=== PATIENT | male | born 1970 | race Caucasian/White ===

== ENCOUNTER 2017-01-15 03:09 | Emergency (ER) | payer BC, OTHER ==
[~2017-01-15] VITALS: Ht 175.3 cm; Wt 82.7 kg
[2017-01-15 03:14] VITALS: TEMP 36.6; Ht 175.3 cm; Wt 82.7 kg
--- NOTE | 2017-01-15 03:44 | EMERGENCY ROOM VISIT NOTE ---
History Report prepared by Brandy: Georgi Zamarripa Under the Supervision of: Dr. Tammie Calvert D.O. First contact with patient: 03:23 Chief Complaint: OTHER COMPLAINT Stated Complaint: EXTREME LICE INFESTATION History of Present Illness The patient is a 46 year old male who presents to the Emergency Room with complaints of a persistent lice infestation beginning three days ago. He states that his head has been itching a lot. He states that he has been using anti- lice shampoo. The patient states that he appeared to be clear of lice earlier today, but then noticed that there was more lice in his hair. He states that he was in the process of cleaning his apartment of lice today. The patient notes that he recently had a problem with bed bugs which was resolved relatively recently. Source of History: patient Onset: Three days ago Quality: other (lice infestation) Timing: other (persistent) Note: Additional symptoms: head itching. Review of Systems See HPI for pertinent positives & negatives. A total of 6 systems reviewed and were otherwise negative. Past Medical & Surgical Medical Problems: (1) No Known Active Medical Problems Family History No pertinent family history stated. Social History Smoking Status: Current Every Day Smoker Current/Historical Medications No Active Prescriptions or Reported Meds Allergies Coded Allergies: No Known Allergies (Unverified , 01/15/17) Physical Exam Vital Signs Date Time Temp Pulse Resp B/P (MAP) Pulse Ox O2 Delivery O2 Flow Rate FiO2 01/15/17 03:54 89 20 152/98 99 01/15/17 03:14 36.6 100 24 150/94 99 Room Air Physical Exam GENERAL: alert, well appearing, well nourished, no distress, non-toxic HEAD: Scalp unremarkable. EYE EXAM: normal conjunctiva, PERRL and EOM's grossly intact NECK: supple, no nuchal rigidity, no adenopathy, non-tender LUNGS: Normal chest wall mechanics. No obvious respiratory distress. SKIN: no rashes and no bruising UPPER EXTREMITIES: upper extremities are grossly normal. LOWER EXTREMITIES: No pitting edema. NEURO EXAM: Normal sensorium, cranial nerves II-XII grossly intact, normal speech, no gross weakness of arms, no gross weakness of legs. Medical Decision & Procedures ED Course 0324: The patient was evaluated in room A8. A complete history and physical exam was performed. 0350: Upon reevaluation, the patient is feeling better. I discussed the findings and the treatment plan with the patient. He verbalizes agreement and understanding. The patient was discharged home. Medical Decision No evidence of active lice infestation during bedside examination of the scalp. Patient very anxious regarding recent issues with bedbugs in his mattress, and now the recent she was lice. No evidence for cellulitis, abscess, no evidence of scabies, no evidence of any other skin rash or sores. Impression Primary Impression: Lice infestation Scribe Attestation The scribe's documentation has been prepared under my direction and personally reviewed by me in its entirety. I confirm that the note above accurately reflects all work, treatment, procedures, and medical decision making performed by me. Departure Information Dispostion Home / Self-Care Prescriptions No Active Prescriptions or Reported Meds Referrals No Doctor, Assigned (PCP) Patient Instructions My [facility] Additional Instructions Please continue tea tree oil and other treatments you have done at home. Please wash all of your blankets, pelvis, linens in hot water and dry on high heat. If you have any worsening symptoms or new concerns, please return to the emergency room.
[2017-01-15 03:54] VITALS: BP 152/98; PULSE 89; O2SAT 99
[2017-03-08] MEDS ORDERED: HYDR-5688 PO (11:19)
[2017-03-08] MEDS ORDERED: POTASSIUM PO (11:21)
== END 2017-01-15 03:55 | disposition home or self-care (01) ==
LOC: C.EDB 03:10 → C.EDA 03:55
DX: B85.0 Pediculosis due to Pediculus humanus capitis (principal); F17.210 Nicotine dependence, cigarettes, uncomplicated

== ENCOUNTER 2017-02-23 12:21 | Emergency (ER) | payer SELFPAY ==
[~2017-02-23] VITALS: Ht 175.3 cm; Wt 76.0 kg
[2017-02-23 12:23] VITALS: TEMP 36.4; Ht 175.3 cm; Wt 76.0 kg
[2017-02-23] MEDS ORDERED: MoRPHine SULFATE 10 MG/ML CARP/VIAL IM STA (12:38)
[2017-02-23] MEDS ORDERED: HYDROmorphone INJ 0.5 MG/0.5 ML SYR IV STA ×2 (13:36→15:53)
[2017-02-23] MEDS ORDERED: SODIUM CHLORIDE 0.9% 1000ML 1,000 ML IV STA (13:36)
--- NOTE | 2017-02-23 13:40 | DIAGNOSTIC IMAGING REPORT ---
RIGHT HEEL MIN 2 VIEWS CLINICAL HISTORY: fall, foot pain Right trauma. Pain. COMPARISON: None. DISCUSSION: Comminuted fracture of the mid anterior calcaneus. Fracture extends to the subtalar joint. Mild pars planus configuration. There is no evidence for soft tissue swelling. IMPRESSION: Comminuted fracture of the calcaneus The above report was generated using voice recognition software. It may contain grammatical, syntax or spelling errors. Electronically signed by: Ivan Licona M.D. 02/23/2017 1:39 PM Dictated Date/Time: 02/23/2017 1:38 PM
--- NOTE | 2017-02-23 13:41 | DIAGNOSTIC IMAGING REPORT ---
LEFT HEEL MIN 2 VIEWS CLINICAL HISTORY: Left calcaneal pain status post trauma COMPARISON: None. DISCUSSION: There is a comminuted intra-articular calcaneal fracture. IMPRESSION: Mildly comminuted intra-articular calcaneal fracture. Electronically signed by: Yomi Schaefer M.D. 02/23/2017 1:39 PM Dictated Date/Time: 02/23/2017 1:38 PM
--- NOTE | 2017-02-23 13:42 | DIAGNOSTIC IMAGING REPORT ---
LEFT FOOT MIN 3 VIEWS ROUTINE CLINICAL HISTORY: Left foot pain status post trauma COMPARISON: None. DISCUSSION: There is a comminuted intra-articular calcaneal fracture. There is a nondisplaced fracture involving the medial aspect of the navicular. No additional fractures are visualized. No subluxations are evident. IMPRESSION: 1. Comminuted intra-articular calcaneal fracture 2. Nondisplaced fracture involving the medial aspect of the navicular Electronically signed by: Yomi Schaefer M.D. 02/23/2017 1:41 PM Dictated Date/Time: 02/23/2017 1:39 PM
--- NOTE | 2017-02-23 13:44 | DIAGNOSTIC IMAGING REPORT ---
LEFT TIBIA/FIBULA 2 VIEWS ROUTINE CLINICAL HISTORY: Fall 6 feet onto feet, bilateral ankle and foot pain. Edema. Trauma COMPARISON: None. DISCUSSION: The bones and joint spaces appear intact. There is no evidence of fracture, dislocation or bony disease. Soft tissue edema is present. IMPRESSION: No acute bony abnormality. Soft tissue edematous change. The above report was generated using voice recognition software. It may contain grammatical, syntax or spelling errors. Electronically signed by: Ivan Licona M.D. 02/23/2017 1:42 PM Dictated Date/Time: 02/23/2017 1:42 PM
--- NOTE | 2017-02-23 13:45 | DIAGNOSTIC IMAGING REPORT ---
RIGHT TIBIA/FIBULA 2 VIEWS ROUTINE CLINICAL HISTORY: Fall 6 feet onto feet, bilateral ankle and foot pain. Edema. COMPARISON: None FINDINGS: There is no acute fracture of the right tibia or fibula. The comminuted, displaced right calcaneal fracture is better depicted on the right foot and heel radiographs. IMPRESSION: 1. No acute fracture of the right tibia or fibula. 2. Comminuted, displaced right calcaneal fracture which is better depicted on the right foot and heel radiographs. Electronically signed by: Aditya Adkins M.D. 02/23/2017 1:43 PM Dictated Date/Time: 02/23/2017 1:41 PM
--- NOTE | 2017-02-23 13:45 | DIAGNOSTIC IMAGING REPORT ---
RIGHT FOOT MIN 3 VIEWS ROUTINE CLINICAL HISTORY: Fall 6 feet onto feet, bilateral ankle and foot pain. Edema. Right trauma. Pain. COMPARISON: None. DISCUSSION: Comminuted fracture of the calcaneus. Mild pars planus deformity. Mild bony distraction. No evidence of dislocation. All remaining osseous structures are unremarkable. Soft tissue edema is present throughout. IMPRESSION: Comminuted moderately distracted fracture of the calcaneus. The above report was generated using voice recognition software. It may contain grammatical, syntax or spelling errors. Electronically signed by: Ivan Licona M.D. 02/23/2017 1:44 PM Dictated Date/Time: 02/23/2017 1:43 PM
[2017-02-23 13:57] LABS: BASO % 0.2 %; BASO ABS # 0.02 K/uL (0-0.2); COMPLETE YES; EOS % 0.6 %; HEMATOCRIT 37.7 % (42-52); IG% 0.2 %; LYMPH % 15.3 %; LYMPH ABS # 1.57 K/uL (1.2-3.4); MEAN CELL VOLUME 86.5 fL (80-100); MEAN CORPUSCULAR HEMOGLOBIN 30.5 pg (25-34); MEAN CORPUSCULAR HGB CONC 35.3 g/dl (32-36); MEAN PLATELET VOLUME 9.7 fL (7.4-10.4); MONO % 9.2 %; NEUT % 74.5 %; PLATELET COUNT 199 K/uL (130-400); RED BLOOD COUNT 4.36 M/uL (4.7-6.1); WHITE BLOOD COUNT 10.27 K/uL (4.8-10.8)
[2017-02-23 14:14] LABS: BUN/CREATININE RATIO 16.1 (10-20); CALCIUM 8.6 mg/dl (8.5-10.1); CREATININE 0.88 mg/dl (0.60-1.40); POTASSIUM 3.1 mmol/L (3.5-5.1)
[2017-02-23 14:17] LABS: ALB/GLOB RATIO 1.5 (0.9-2)
--- NOTE | 2017-02-23 15:28 | DIAGNOSTIC IMAGING REPORT ---
CT RIGHT ANKLE NO CONTRAST CT DOSE: CLINICAL HISTORY: Right calcaneal fracture TECHNIQUE: Helical images were acquired in the transverse plane. Sagittal and coronal reformatted images were acquired. Three-dimensional reformatted images were also obtained. A dose lowering technique was utilized adhering to the principles of ALARA. COMPARISON STUDY: Conventional radiographic study dated 02/23/2017 FINDINGS: There is a comminuted intra-articular calcaneal fracture. The fracture involves both the anterior and posterior aspects of the subtalar joint. The fracture involves the calcaneocuboid joint. There is significant splaying of the fracture with 15 mm of maximal fracture fragment distraction. IMPRESSION: Comminuted distracted intra-articular calcaneal fracture. Electronically signed by: Yomi Schaefer M.D. 02/23/2017 3:26 PM Dictated Date/Time: 02/23/2017 3:22 PM
--- NOTE | 2017-02-23 15:32 | DIAGNOSTIC IMAGING REPORT ---
CT OF THE LEFT ANKLE AND FOOT WITHOUT CONTRAST CLINICAL HISTORY: Fall. Bilateral calcaneal fractures. COMPARISON STUDY: Left foot and heel radiographs performed earlier today. FINDINGS: Note is made of an acute markedly comminuted, moderately displaced left calcaneal fracture. The fracture extends throughout the calcaneus and involves the posterior, middle and anterior facets of the subtalar joint. However, no intra-articular fracture fragment is present. There is an acute nondisplaced fracture of the medial navicular bone. Tarsometatarsal joints are anatomically aligned. No additional fractures are identified within the left foot. There is marked lateral left ankle and hindfoot soft tissue swelling. IMPRESSION: 1. Moderately displaced, markedly comminuted left calcaneal fracture which extends to the posterior, middle and anterior facets of the subtalar joint. No intra-articular fracture fragments identified. 2. Acute nondisplaced fracture of the medial navicular bone. 3. Marked lateral left ankle and hindfoot soft tissue swelling. Electronically signed by: Aditya Adkins M.D. 02/23/2017 3:30 PM Dictated Date/Time: 02/23/2017 3:22 PM
[2017-02-23] MEDS ORDERED: OXYCODONE HCL IR 5 MG TAB (IMMEDIATE RELEASE) PO STA (17:32)
[2017-02-23] MEDS ORDERED: OXYC1TAB3 PO (17:41)
[2017-02-23] MEDS ORDERED: POTASSIUM CHLORIDE 10 MEQ TABCR PO STA (17:46)
--- NOTE | 2017-02-23 17:46 | EMERGENCY ROOM VISIT NOTE ---
History First contact with patient: 12:34 Chief Complaint: FALL Stated Complaint: POSSIBLY BROKE BOTH ANKLES - FALL 6FEET History of Present Illness The patient is a 46 year old male who presents to the Emergency Room via private vehicle with complaints of "possibly broke both anklesfell 6 feet". The patient states that around 11 AM, he was at his house, attempting to secure a heavy box to the top of the SUV. He states that he lost his balance, fell backwards landing on both of his heels onto the pavement. He was wearing shoes. He states that he is unable to bear weight onto his ankles and notes extreme pain in both of them. He denies any pain anywhere else. He denies striking his head or loss of consciousness. Review of Systems A complete 6-point Review of Systems was discussed with the patient, with pertinent positives and negatives listed in the History of Present Illness. All remaining Review of Systems questions can be considered negative unless otherwise specified. Past Medical/Surgical History Medical Problems: (1) No Known Active Medical Problems Family History No pertinent. Social History Smoking Status: Current Every Day Smoker Patient lives locally. Current/Historical Medications Scheduled PRN Oxycodone Ir (Roxicodone Ir), 1-2 TAB PO Q4H PRN for Pain Physical Exam Vital Signs Date Time Temp Pulse Resp B/P (MAP) Pulse Ox O2 Delivery O2 Flow Rate FiO2 02/23/17 18:17 74 20 126/64 98 Room Air 02/23/17 17:35 92 18 111/66 99 Room Air 02/23/17 15:30 84 20 132/86 98 Room Air 02/23/17 13:55 83 20 120/89 98 Room Air 02/23/17 12:23 36.4 90 18 136/90 96 Room Air Physical Exam VITAL SIGNS - Vital signs and nursing notes were reviewed. Afebrile, hypertensive at 136/90, non-tachycardic and is saturating well on room air 96%. GENERAL -46-year-old male appearing his stated age who is in no acute distress. Communicates well with provider and answers questions appropriately. SKIN - Without rashes. The skin overlying the ankles are both edematous, and starting to bruise. HEAD - NC/AT. No lennon signs or raccoons eyes. EYES -no hyphema. EARS - No deformities of external structures noted on gross examination bilaterally. No blood from the ear canals. NOSE - Midline and without cyanosis. No epistaxis or purulent drainage noted. MOUTH/OROPHARYNX - Without perioral cyanosis. NECK - Neck with FROM. No C-spine tenderness. LUNGS - Chest wall symmetric without accessory muscle use, intercostals retractions, or central cyanosis. Normal vesicular breath sounds CTA B/L. No wheezes, rales, or rhonchi appreciated. CARDIAC - RRR with S1/S2. No murmur, rubs, or gallops appreciated. MUSCULOSKELETAL: No tenderness to palpation overlying any of the spinous processes. EXTREMITIES - No clubbing or peripheral cyanosis. No pretibial edema present. He is neurovascularly intact in lower extremities. There is exquisite tenderness to palpation overlying the calcaneal regions of both feet. +5/5 strength noted in UE/LE bilaterally. NEUROLOGIC - Sensory intact to light touch throughout. Medical Decision & Procedures ER Provider Diagnostic Interpretation: LEFT TIBIA/FIBULA 2 VIEWS ROUTINE CLINICAL HISTORY: Fall 6 feet onto feet, bilateral ankle and foot pain. Edema. Trauma COMPARISON: None. DISCUSSION: The bones and joint spaces appear intact. There is no evidence of fracture, dislocation or bony disease. Soft tissue edema is present. IMPRESSION: No acute bony abnormality. Soft tissue edematous change. The above report was generated using voice recognition software. It may contain grammatical, syntax or spelling errors. Electronically signed by: Ivan Licona M.D. 02/23/2017 1:42 PM Dictated Date/Time: 02/23/2017 1:42 PM RIGHT TIBIA/FIBULA 2 VIEWS ROUTINE CLINICAL HISTORY: Fall 6 feet onto feet, bilateral ankle and foot pain. Edema. COMPARISON: None FINDINGS: There is no acute fracture of the right tibia or fibula. The comminuted, displaced right calcaneal fracture is better depicted on the right foot and heel radiographs. IMPRESSION: 1. No acute fracture of the right tibia or fibula. 2. Comminuted, displaced right calcaneal fracture which is better depicted on the right foot and heel radiographs. Electronically signed by: Aditya Adkins M.D. 02/23/2017 1:43 PM Dictated Date/Time: 02/23/2017 1:41 PM LEFT FOOT MIN 3 VIEWS ROUTINE CLINICAL HISTORY: Left foot pain status post trauma COMPARISON: None. DISCUSSION: There is a comminuted intra-articular calcaneal fracture. There is a nondisplaced fracture involving the medial aspect of the navicular. No additional fractures are visualized. No subluxations are evident. IMPRESSION: 1. Comminuted intra-articular calcaneal fracture 2. Nondisplaced fracture involving the medial aspect of the navicular Electronically signed by: Yomi Schaefer M.D. 02/23/2017 1:41 PM Dictated Date/Time: 02/23/2017 1:39 PM RIGHT FOOT MIN 3 VIEWS ROUTINE CLINICAL HISTORY: Fall 6 feet onto feet, bilateral ankle and foot pain. Edema. Right trauma. Pain. COMPARISON: None. DISCUSSION: Comminuted fracture of the calcaneus. Mild pars planus deformity. Mild bony distraction. No evidence of dislocation. All remaining osseous structures are unremarkable. Soft tissue edema is present throughout. IMPRESSION: Comminuted moderately distracted fracture of the calcaneus. The above report was generated using voice recognition software. It may contain grammatical, syntax or spelling errors. Electronically signed by: Ivan Licona M.D. 02/23/2017 1:44 PM Dictated Date/Time: 02/23/2017 1:43 PM LEFT HEEL MIN 2 VIEWS CLINICAL HISTORY: Left calcaneal pain status post trauma COMPARISON: None. DISCUSSION: There is a comminuted intra-articular calcaneal fracture. IMPRESSION: Mildly comminuted intra-articular calcaneal fracture. Electronically signed by: Yomi Schaefer M.D. 02/23/2017 1:39 PM Dictated Date/Time: 02/23/2017 1:38 PM RIGHT HEEL MIN 2 VIEWS CLINICAL HISTORY: fall, foot pain Right trauma. Pain. COMPARISON: None. DISCUSSION: Comminuted fracture of the mid anterior calcaneus. Fracture extends to the subtalar joint. Mild pars planus configuration. There is no evidence for soft tissue swelling. IMPRESSION: Comminuted fracture of the calcaneus The above report was generated using voice recognition software. It may contain grammatical, syntax or spelling errors. Electronically signed by: Ivan Licona M.D. 02/23/2017 1:39 PM Dictated Date/Time: 02/23/2017 1:[address] RIGHT ANKLE NO CONTRAST CT DOSE: CLINICAL HISTORY: Right calcaneal fracture TECHNIQUE: Helical images were acquired in the transverse plane. Sagittal and coronal reformatted images were acquired. Three-dimensional reformatted images were also obtained. A dose lowering technique was utilized adhering to the principles of ALARA. COMPARISON STUDY: Conventional radiographic study dated 02/23/2017 FINDINGS: There is a comminuted intra-articular calcaneal fracture. The fracture involves both the anterior and posterior aspects of the subtalar joint. The fracture involves the calcaneocuboid joint. There is significant splaying of the fracture with 15 mm of maximal fracture fragment distraction. IMPRESSION: Comminuted distracted intra-articular calcaneal fracture. Electronically signed by: Yomi Schaefer M.D. 02/23/2017 3:26 PM Dictated Date/Time: 02/23/2017 3:[address] OF THE LEFT ANKLE AND FOOT WITHOUT CONTRAST CLINICAL HISTORY: Fall. Bilateral calcaneal fractures. COMPARISON STUDY: Left foot and heel radiographs performed earlier today. FINDINGS: Note is made of an acute markedly comminuted, moderately displaced left calcaneal fracture. The fracture extends throughout the calcaneus and involves the posterior, middle and anterior facets of the subtalar joint. However, no intra-articular fracture fragment is present. There is an acute nondisplaced fracture of the medial navicular bone. Tarsometatarsal joints are anatomically aligned. No additional fractures are identified within the left foot. There is marked lateral left ankle and hindfoot soft tissue swelling. IMPRESSION: 1. Moderately displaced, markedly comminuted left calcaneal fracture which extends to the posterior, middle and anterior facets of the subtalar joint. No intra-articular fracture fragments identified. 2. Acute nondisplaced fracture of the medial navicular bone. 3. Marked lateral left ankle and hindfoot soft tissue swelling. Electronically signed by: dAitya Adkins M.D. 02/23/2017 3:30 PM Dictated Date/Time: 02/23/2017 3:22 PM Laboratory Results 02/23/17 13:44 Red Blood Count 4.36, Mean Corpuscular Volume 86.5, Mean Corpuscular Hemoglobin 30.5, Mean Corpuscular Hemoglobin Concent 35.3, Mean Platelet Volume 9.7, Neutrophils (%) (Auto) 74.5, Lymphocytes (%) (Auto) 15.3, Monocytes (%) (Auto) 9.2, Eosinophils (%) (Auto) 0.6, Basophils (%) (Auto) 0.2, Neutrophils # (Auto) 7.66, Lymphocytes # (Auto) 1.57, Monocytes # (Auto) 0.94, Eosinophils # (Auto) 0.06, Basophils # (Auto) 0.02 02/23/17 13:44 Test 02/23/17 13:44 White Blood Count 10.27 K/uL (4.8-10.8) Red Blood Count 4.36 M/uL (4.7-6.1) Hemoglobin 13.3 g/dL (14.0-18.0) Hematocrit 37.7 % (42-52) Mean Corpuscular Volume 86.5 fL (80-100) Mean Corpuscular Hemoglobin 30.5 pg (25-34) Mean Corpuscular Hemoglobin Concent 35.3 g/dl (32-36) Platelet Count 199 K/uL (130-400) Mean Platelet Volume 9.7 fL (7.4-10.4) Neutrophils (%) (Auto) 74.5 % Lymphocytes (%) (Auto) 15.3 % Monocytes (%) (Auto) 9.2 % Eosinophils (%) (Auto) 0.6 % Basophils (%) (Auto) 0.2 % Neutrophils # (Auto) 7.66 K/uL (1.4-6.5) Lymphocytes # (Auto) 1.57 K/uL (1.2-3.4) Monocytes # (Auto) 0.94 K/uL (0.11-0.59) Eosinophils # (Auto) 0.06 K/uL (0-0.5) Basophils # (Auto) 0.02 K/uL (0-0.2) RDW Standard Deviation 40.0 fL (36.4-46.3) RDW Coefficient of Variation 12.4 % (11.5-14.5) Immature Granulocyte % (Auto) 0.2 % Immature Granulocyte # (Auto) 0.02 K/uL (0.00-0.02) Anion Gap 6.0 mmol/L (3-11) Est Creatinine Clear Calc Drug Dose 107.2 ml/min Estimated GFR () 121.1 Estimated GFR (Non- 104.5 BUN/Creatinine Ratio 16.1 (10-20) Calcium Level 8.6 mg/dl (8.5-10.1) Total Bilirubin 0.4 mg/dl (0.2-1) Aspartate Amino Transf (AST/SGOT) 27 U/L (15-37) Alanine Aminotransferase (ALT/SGPT) 29 U/L (12-78) Alkaline Phosphatase 75 U/L (45-117) Total Protein 6.7 gm/dl (6.4-8.2) Albumin 4.0 gm/dl (3.4-5.0) Globulin 2.7 gm/dl (2.5-4.0) Albumin/Globulin Ratio 1.5 (0.9-2) Medications Administered Medications (Trade) Dose Ordered Sig/Ramy Route Start Time Stop Time Status Last Admin Dose Admin Morphine Sulfate (MoRPHine SULFATE INJ) 10 mg NOW STAT IM 02/23/17 12:38 02/23/17 12:40 DC 02/23/17 12:49 10 MG Hydromorphone HCl (Dilaudid Inj) 0.5 mg NOW STAT IV 02/23/17 13:36 02/23/17 13:38 DC 02/23/17 13:54 0.5 MG Sodium Chloride 1,000 ml @ 999 mls/hr Q1H1M STAT IV 02/23/17 13:36 02/23/17 14:36 DC 02/23/17 13:54 999 MLS/HR Hydromorphone HCl (Dilaudid Inj) 0.5 mg NOW STAT IV 02/23/17 15:53 02/23/17 15:58 DC 02/23/17 15:58 0.5 MG Oxycodone HCl (Roxicodone Immediate Rel Tab) 5 mg NOW STAT PO 02/23/17 17:32 02/23/17 17:33 DC 02/23/17 17:41 5 MG Potassium Chloride (Klor-Con M10) 40 meq NOW STAT PO 02/23/17 17:46 02/23/17 17:48 DC 02/23/17 18:22 40 MEQ Medical Decision Patient was seen and evaluated as above. He presents to us today with bilateral ankle/foot pain. X-rays were obtained of the tib-fib/feet and reveal calcaneal fracture, therefore dedicated views of the heels were obtained. Results as above. He does have bilateral calcaneal fracture, with navicular involvement of the one side. He has no pain anywhere else, specifically no tenderness to palpation of the spine. He was given 10 mg of morphine IM initially, and then IV access was initiated after verifying fracture. CBC and metabolic workup were obtained. No leukocytosis. Slight anemia noted. He has a potassium of 3.1. No evidence of kidney or liver failure. He was given morphine again, and then changed to Dilaudid to help manage his pain. A consult call was placed orthopedics, the on-call orthopedic surgeon Dr. Carpio , of which was returned by Emil Lombardo PA-C. We discussed the case, and the choices where the patient could be admitted for pain management, or discharged home with well-padded Ortho-Glass posterior splints with stirrup. Patient was encouraged to stay, specifically to help manage pain however he was adamant that he would like to go home. He was very cooperative throughout his stay, that noted that he would like to triangle home first. I do believe this is reasonable, he was splinting here appropriately, and the decision was made to discharge him home at his own request. He'll be given a short course of OxyIR for his pain. No red flags were identified and the [place] drug monitoring system. I did enlist the help of our caseworker intake here, to help the patient apply for medical assistance or at least provided with the paperwork to do so as well as Center volunteers in medicine. He will need to follow up for the anemia, as well as the low potassium in which was supplemented here by 40 MEQ potassium chloride. He is to call Dr. Veliz, first thing Sunday morning of [facility]. I did then obtain a CT scan of the patient's heels to better depict for potential surgical management in the future. Results as above. The patient then had his friend come here with a wheelchair, and was able to escort him home and the patient notes that he has ample help at home to help him through this. Patient was educated upon management, educated upon worrisome symptoms in which to return, had questions prior discharge, and was discharged home in good condition. He was specifically told to not bear any weight, and is to not get the splint wet. In the evaluation and treatment of this patient, the following differential diagnoses were considered: Ankle Fracture, Ankle Sprain, Distal Fibula Fracture , Distal Tibia Fracture, Foot Fracture, [place] Fracture. Impression Primary Impression: Fall Additional Impressions: Calcaneal fracture Anemia Hypokalemia Departure Information Dispostion Home / Self-Care Condition GOOD Prescriptions Oxycodone Ir (Roxicodone Ir) 5 Mg Tab 1-2 TAB PO Q4H Y for Pain, #20 TAB For Initial Treatment Prov: Yoel Mitchell PA-C 02/23/17 Referrals No Doctor, Assigned (PCP) Paul Veliz D.O. Patient Instructions Hypokalemia Dc, My [facility] Additional Instructions You have been treated in the Emergency Department for heel and feet fractures of both feet. You have received pain medicine in the emergency department which impairs your ability to operate a vehicle. It is illegal for you to drive after receiving these medicines. You have been prescribed OxyIR to be used for pain control. This is a narcotic medication. You cannot drive or consume alcohol while on this medicine. This medicine should only be used for pain that cannot be controlled with over-the- counter pain medicines. For pain control, you can use the following somf-bcs-zfwuxbe medicines (if >12 yo): - Regular strength (325mg/tab) Tylenol (acetaminophen) 2 tabs every 4-6 hours as needed. Do not exceed 12 tablets in a 24 hour period. Avoid taking more than 3 grams (3000 mg) of Tylenol per day. This includes any other sources of acetaminophen you may take on a regular basis. - Regular strength (200 mg/tab) Advil (ibuprofen) 1-2 tabs every 4-6 hours as needed. Do not exceed a dose of 3200 mg per day. If this is a recent injury (<24 hrs), ice can be applied to the area of pain for the first 3 days to help decrease pain and inflammation. You have been provided the number for an Orthopaedic Surgeon. You should call this number as soon as possible to establish a follow-up visit from today's Emergency Department visit. Keep the ankle brace/splints in place until cleared by Orthopedics. Use the WHEELCHAIR you have to keep ALL weight off of the ankle until weight bearing is tolerable. Return to the Emergency Department if your current symptoms worsen despite treatment course outlined above, or if you develop any of the following symptoms : intractable pain despite aforementioned treatment course or new onset of numbness or tingling of the foot. Please return to the emergency department with any new/concerning symptoms. Please follow-up with family doctor for anemia, which is decreased blood count as well as your low potassium. Problem Qualifiers
[2017-02-23 18:17] VITALS: BP 126/64; PULSE 74; O2SAT 98
[2017-03-08] MEDS ORDERED: HYDR-5688 PO (11:19)
[2017-03-08] MEDS ORDERED: POTASSIUM PO (11:21)
== END 2017-02-23 18:30 | disposition home or self-care (01) ==
LOC: C.EDB 12:22 → C.EDD 18:30
DX: S92.001A Unspecified fracture of right calcaneus, initial encounter for closed fracture (principal); S92.065A Nondisplaced intraarticular fracture of left calcaneus, initial encounter for closed fracture; S92.255A Nondisplaced fracture of navicular [scaphoid] of left foot, initial encounter for closed fracture; W17.89XA Other fall from one level to another, initial encounter; D64.9 Anemia, unspecified; E87.6 Hypokalemia; F17.200 Nicotine dependence, unspecified, uncomplicated; R03.0 Elevated blood-pressure reading, without diagnosis of hypertension

== ENCOUNTER 2017-03-09 08:48 | Observation (INO) | payer SELFPAY ==
[2017-03-08 11:22] VITALS: BMI 24.0
--- NOTE | 2017-03-08 21:18 | History and Physical ---
History & Physical Date Mar 08, 2017. Chief Complaint Right heel pain History of Present Illness The patient is a 46 year old male with complaints of bilateral heel pain x 2 weeks. He sustained a fall from the height of an SUV but also had the weight of a roof carrier fall with him. He had significant pain in both heels and x-rays and CT scans at [facility] confirmed displaced calcaneal fx's. The left was able to be treated conservatively but the right is being set up for surgical management. Past Medical/Surgical History Medical Problems: (1) No Known Active Medical Problems Past surgical hx: None 1/2 per day smoker. Allergies Coded Allergies: No Known Allergies (Unverified , 03/08/17) Home Medications Scheduled [Potassium], 4 TAB PO BID Scheduled PRN Hydrocodone/Acetaminophen 5MG/325MG ([place] 5MG/325MG), 1 TABLET PO Q4-6H PRN for Pain Physical Examination Skin: warm/dry, no rash Eyes: normal inspection ENT: normal ENT inspection Head: normocephalic, atraumatic Neck: supple, no adenopathy, trachea midline Respiratory/Chest: lungs clear, normal breath sounds, no respiratory distress Cardiovascular: regular rate, rhythm, no murmur Abdomen / GI: normal bowel sounds, non tender Extremities: + pertinent finding (NWB BLE. Tender to palpation at each heel. Painful ROM bilateral. No strength testing done. LLE in [facility]LC. RLE with mild to moderate swelling.) Neurologic/Psych: no motor/sensory deficits, alert, oriented x 3 Diagnosis Right calcaneus fx Right navicular fx Plan of Treatment Recommend an ORIF right calcaneus fx, closed tx right navicular fx. All potential risks, benefits, complications, alternatives, and rehab have been discussed and he wishes to proceed. He will be scheduled on 03.09.17 with ASA 81 mg BID x 4-6 wks DVT prophylaxis.
[~2017-03-09] VITALS: Ht 172.7 cm; Wt 72.7 kg
[2017-03-09] VITALS (7 sets, daily range): BP systolic 109–132; BP diastolic 63–84; PULSE 85–105; TEMP 36.6–37; O2SAT 94–98; Ht 172.7 cm; Wt 72.7 kg
[~2017-03-09 08:48] MED LIST: BUPIVACAINE 0.5 % 5 MG/1 ML PF 10ML VIAL ONE; CEFAZOLIN 2000 MG/60 ML D5W IV SCH; HYDR-5688 PO; LACTATED RINGER'S 1000ML 1,000 ML IV SCH; POTASSIUM PO
[2017-03-09 10:07] LABS: CALCIUM 9.7 mg/dl (8.5-10.1); CREATININE 0.88 mg/dl (0.60-1.40); POTASSIUM 3.9 mmol/L (3.5-5.1)
--- NOTE | 2017-03-09 10:45 | History & Physical Bridge Note ---
H&P Re-Evaluation Bridge Note: I have examined the patient, reviewed the History & Physical and in the interval since the performance of the History & Physical I have noted the following changes of clinical significance: No changes noted
[2017-03-09] MEDS ORDERED: BACITRACIN 50000 UNIT VIAL ONE (10:59)
[2017-03-09] MEDS ORDERED: BUPIVACAINE 0.5 % 5 MG/1 ML MPF 30ML VIAL ONE (10:59)
[2017-03-09] MEDS ORDERED: DEXAMETHASONE SOD INJ 4 MG/ML VIAL ONE (11:03)
[2017-03-09] MEDS ORDERED: MIDAZOLAM HCL 1 MG/ML 2ML VIAL ONE (11:03)
[2017-03-09] MEDS ORDERED: LIDOCAINE HCL 2% 2 ML VIAL (20MG/ML) ONE (11:03)
[2017-03-09] MEDS ORDERED: PROPOFOL IV EMULSION 10 MG/ML 20 ML VIAL IV ONE ×2 (11:03→13:30)
[2017-03-09] MEDS ORDERED: ONDANSETRON INJ 2 MG/ML 2 ML VIAL ONE (11:03)
[2017-03-09] MEDS ORDERED: FENTANYL CITRATE INJ 50 MCG/1 ML 2 ML VIAL ONE ×3 (11:04→15:29)
[2017-03-09] MEDS ORDERED: MEPERIDINE HCL 50 MG/ML CARP ONE (12:19)
[2017-03-09] MEDS ORDERED: MEPERIDINE HCL 25 MG/ML CARP IV PRN (12:30)
[2017-03-09] MEDS ORDERED: PHENYLEPHRINE 100MCG/ML 5ML SYR ONE (13:30)
[2017-03-09] MEDS ORDERED: SODIUM CHLORIDE 0.9% INJ 10 ML VIAL ONE (13:30)
[2017-03-09] MEDS ORDERED: EpHEDrine SULFATE INJ 50 MG/ML AMP ONE (13:30)
[2017-03-09] MEDS ORDERED: NEOSTIGMINE METHYLSULFATE 5 MG/5 ML SYR ONE (13:30)
[2017-03-09] MEDS ORDERED: ROCURONIUM BROMIDE 10 MG/ML 5 ML VIAL IV ONE (13:51)
[2017-03-09] MEDS ORDERED: GLYCOPYRROLATE INJ 0.2 MG/ML VIAL ONE (13:51)
[2017-03-09] MEDS ORDERED: PHENYLEPHRINE HCL INJ 10 MG/ML VIAL ONE (13:52)
[2017-03-09] MEDS ORDERED: KETOROLAC TROMETHAMINE 30 MG/ML VIAL IV. PRN (14:15)
[2017-03-09] MEDS ORDERED: ONDANSETRON INJ 2 MG/ML 2 ML VIAL IV PRN ×2 (14:15→15:45)
[2017-03-09] MEDS ORDERED: ATROPINE SULFATE 0.1 MG/ML 5ML SYR IV PRN (14:15)
[2017-03-09] MEDS ORDERED: KETAMINE HCL INJ 50 MG/ML 10 ML VIAL ONE (14:52)
--- NOTE | 2017-03-09 15:12 | DIAGNOSTIC IMAGING REPORT ---
Radiology R ANKLE 2 VIEWS CLINICAL HISTORY: 46 years-old Male presenting with RT ORIF CALCANEAL FX. TECHNIQUE: 3 fluoroscopic spot image(s) obtained as part of an intraoperative procedure. COMPARISON: 02/23/2017. FINDINGS/IMPRESSION: There has been interval extensive cortical compression plate and screw fixation of the calcaneus across the comminuted calcaneal fracture. Normal anatomic alignment.. Please see surgical report for further details. Fluoroscopy dosage (mGy): Not available. Fluoroscopy time: 22 seconds. Number of fluoroscopic spot images: 3. Electronically signed by: Bert Lynch M.D. 03/09/2017 3:11 PM Dictated Date/Time: 03/09/2017 3:10 PM
--- NOTE | 2017-03-09 15:33 | [facility] Post Operative Brief Note ---
Immediate Operative Summary Operative Date Mar 09, 2017. Pre-Operative Diagnosis Right Calcaneus Fracture Right Navicular Fracture Post-Operative Diagnosis Right Calcaneus Fracture Right Navicular Fracture Procedure(s) Performed Right Calcaneal Fracture Open Reduction Internal Fixation, Closed Treatment Navicular Fracture with Application Splint Surgeon Dr Paul Veliz Real Estate Broker Surgeon(s) Say Ding PA-C Estimated Blood Loss 10 cc Findings See dict Specimens None per Surgeon Drains HV x 1 Anesthesia GETT w/ popliteal block Complication(s) None Disposition Recovery Room / PACU
[2017-03-09] MEDS ORDERED: MoRPHine SULFATE 4 MG/ML 1 ML CARP\\VIAL IV PRN (15:45)
[2017-03-09] MEDS ORDERED: MAGNESIUM HYDROXIDE SUSP 30 ML UDC PO PRN (15:45)
[2017-03-09] MEDS ORDERED: ZOLPIDEM TARTRATE 5 MG TAB PO PRN (15:45)
[2017-03-09] MEDS ORDERED: OXYCODONE HCL IR 5 MG TAB (IMMEDIATE RELEASE) PO PRN (15:45)
[2017-03-09] MEDS ORDERED: ACETAMINOPHEN 325 MG TAB PO PRN (15:45)
[2017-03-09] MEDS: HYDROmorphone INJ 2 MG/ML SYR/VIAL IV PRN ×3 (16:00→16:10)
--- NOTE | 2017-03-09 16:23 | Anesthesiology Progress Note ---
Anesthesia Post Op Note Date & Time Mar 09, 2017 at 16:23 Vital Signs Pain Intensity: 4 Vital Signs Past 12 Hours Date Time Temp Pulse Resp B/P (MAP) Pulse Ox O2 Delivery O2 Flow Rate FiO2 03/09/17 16:10 105 18 141/82 97 Room Air 03/09/17 16:00 113 18 140/83 96 Oxymask 10 03/09/17 15:50 107 18 144/86 96 Oxymask 10 03/09/17 15:40 36.5 120 18 173/77 96 Oxymask 10 03/09/17 09:51 36.8 85 18 123/84 (97) 98 Room Air Notes Mental Status: alert / awake / arousable, participated in evaluation Pt Amnestic to Procedure: Yes Nausea / Vomiting: adequately controlled Pain: adequately controlled Airway Patency, RR, SpO2: stable & adequate BP & HR: stable & adequate Hydration State: stable & adequate Anesthetic Complications: no major complications apparent
[2017-03-09] MEDS ORDERED: IV FLUIDS COMPLETED PRN (16:30)
--- NOTE | 2017-03-09 16:52 | DIAGNOSTIC IMAGING REPORT ---
R ANKLE MIN 3 VIEWS ROUTINE CLINICAL HISTORY: post-op COMPARISON STUDY: Right ankle 03/09/2017. FINDINGS: 3 views of the right ankle. Overlying splint material obscures fine bony detail. The patient is status post internal fixation of a comminuted calcaneal fracture with lateral cortical plates transfixed with screws. The hardware appears intact. The alignment is near-anatomic. A surgical drain is in place. IMPRESSION: Status post internal fixation of a comminuted calcaneal fracture. The hardware appears intact. Electronically signed by: Nolan Bangura M.D. 03/09/2017 4:51 PM Dictated Date/Time: 03/09/2017 4:49 PM
--- NOTE | 2017-03-09 17:04 | DIAGNOSTIC IMAGING REPORT ---
R FOOT MIN 3 VIEWS ROUTINE CLINICAL HISTORY: post-op COMPARISON STUDY: Right ankle 03/09/2017. FINDINGS: Patient is status post internal fixation of a comminuted calcaneal fracture with a lateral cortical plate transfixed with screws. The hardware appears intact. Surgical drain is in place. Overlying splint material obscures fine bony detail. IMPRESSION: Status post internal fixation of a calcaneal fracture with a lateral cortical plate transfixed with screws. The hardware appears intact. Electronically signed by: Nolan Bangura M.D. 03/09/2017 5:02 PM Dictated Date/Time: 03/09/2017 4:59 PM
--- NOTE | 2017-03-09 18:33 | OPERATIVE REPORT ---
DATE OF OPERATION: 03/09/2017 PREOPERATIVE DIAGNOSES: 1. Right displaced calcaneal fracture. 2. Navicular fracture. POSTOPERATIVE DIAGNOSES: Same. PROCEDURES: 1. Open reduction and internal fixation of right calcaneus fracture. 2. Closed treatment of right navicular fracture with application of splint. SURGEON: Dr. Paul Veliz. BAGEL MAKER: Say Ding PA-C, who was present for patient positioning, sterile prep and drape, management of retractors and instruments. He was present through the critical portions of the case including wound closure, application of sterile dressing and transport of the patient to recovery. ANESTHESIA: General endotracheal tube with popliteal block. SPECIMENS: None. DRAINS: Hemovac x1. COMPLICATIONS: None. BLOOD LOSS: 10 mL. PERTINENT HISTORY: This is a 46-year-old who had sustained a fall, landing on both feet and sustained fractures of bilateral calcaneus bones. The patient was seen in the Emergency Department and then had CT scans of bilateral heels. The left one was noted to be amenable to closed treatment. The right one, however, was significantly displaced and needed to be treated with operative intervention and plate fixation. The patient was noted to have a right navicular fracture that could be treated closed. All potential risks, benefits, complications, alternatives, rehab, potential for incomplete relief of symptoms, need for further surgery, DVT, PE, , persistent pain, swelling, scarring, weakness, neurovascular injury, wound complications, hardware failure, nonunion, and malunion were discussed with the patient. The patient decided to proceed with the procedure as indicated. DETAILS OF PROCEDURE: The patient had a popliteal block in the pre-op holding area and was then taken to the operative suite and placed supine on the operating room table. After identification of the proper operative site the patient was anesthetized. Endotracheal tube was placed. He had a popliteal block of the right lower extremity. The right lower extremity had a tourniquet applied on the proximal thigh over cast padding. The patient was placed in left lateral decubitus position with the affected side up on a beanbag and the right lower extremity was then sterilely prepped and draped in the usual fashion, elevated, exsanguinated with an Esmarch bandage and tourniquet inflated to 350 mmHg. Next, a 15 blade scalpel incision was used to make a curvilinear incision over the calcaneus at the glabrous border of the foot. This full thickness skin flap was sharply elevated. Care was taken to protect the skin edges. Next, K wires were placed in the fibula, talus, and cuboid to perform no-touch technique with elevation of the skin flap. Peroneal tendons were elevated and then the calcaneal fracture was clearly identified. The wound was copiously irrigated with sterile normal saline and suctioned. Small bone fragments were preserved for later use in the operative fixation. Next, the 2.0 mm guide pins were driven from the tuberosity of the calcaneus into the sustentacular fragment to stabilize it with corrected varus, valgus and then a lateral wall fragment was removed, debrided and then reduced. This was pinned in place with two 1.6 mm K wires. Next, after the fragments were stabilized in near anatomic alignment and orientation with reduction of the heel width and church normal heel valgus x-rays were obtained confirming position and then a medium size titanium plate was then provisionally fixed with a screw into the subtalar subchondral bone. After rotation and position were confirmed the plate was then firmly affixed to the lateral aspect of the calcaneus. The fracture was noted to be in near-anatomic position and stabilized with multiple screws. The K wires were removed and the skin retractor pins were removed. The wound was irrigated with sterile normal saline. The incision was completely irrigated with bacitracin additive solution and then the bone graft which was saved previously was then placed back into the fracture to encourage bone healing. A 10 Irish single lumen Hemovac drain was placed. The full thickness skin flap was then closed using buried interrupted 3-0 Vicryl sutures and then the skin was closed using 4-0 nylon sutures using Allgower-Donati suture technique with 4-0 nylon sutures. Next the sterile compressive dressing and bulky Alek Abdi plaster splint was applied overwrapped with an Carlito wrap to stabilize the calcaneus and to treat the navicular fracture of the right. Tourniquet was released. The patient was awakened and taken to recovery in stable condition. I attest to the content of the Intraoperative Record and any orders documented therein. Any exceptions are noted below. I attest to the content of the Intraoperative Record and any orders documented therein. Any exceptions are noted below. GONZALES
[2017-03-09] MEDS: CEFAZOLIN IV 1,000 MG in DEXTROSE 5% 50ML 50 ML IV SCH (19:51)
[2017-03-09] MEDS: POTASSIUM CHLORIDE INJ 10 MEQ in SODIUM CHLORIDE 0.9% 1000ML 1,000 ML IV SCH (19:51)
[2017-03-09] MEDS: PREGABALIN 75 MG CAP PO SCH (21:09)
[2017-03-09] MEDS: DOCUSATE SODIUM 100 MG CAP PO SCH (21:09)
[2017-03-10 03:14] VITALS: BP 116/68; PULSE 88; TEMP 36.7; O2SAT 97
[2017-03-10] MEDS: CEFAZOLIN IV 1,000 MG in DEXTROSE 5% 50ML 50 ML IV SCH (03:31)
[2017-03-10] MEDS: POTASSIUM CHLORIDE INJ 10 MEQ in SODIUM CHLORIDE 0.9% 1000ML 1,000 ML IV SCH (03:31)
[2017-03-10 07:20] VITALS: BP 116/66; PULSE 86; TEMP 36.9; O2SAT 97
--- NOTE | 2017-03-10 08:30 | Orthopedic Progress Note ---
Orthopedic Progress Note Date of Service Mar 10, 2017. Subjective Post OP Day: 1 Reports: feeling well, pain controlled w PO medications, Denies: complaints, chest pain, SOB, nausea / vomiting, light headedness, calf pain Objective calves soft nontender, N/V intact, capillary refill less than 2 sec., dressing C /D/I, A&O x3, toes mobile Date Time Temp Pulse Resp B/P (MAP) Pulse Ox O2 Delivery O2 Flow Rate FiO2 03/10/17 07:20 36.9 86 18 116/66 (83) 97 Room Air 03/10/17 03:14 36.7 88 17 116/68 (84) 97 Room Air 03/10/17 00:00 Room Air 03/09/17 23:03 36.8 105 17 114/63 (80) 96 Room Air 03/09/17 20:15 36.8 87 18 132/70 (90) 94 Room Air 03/09/17 19:45 Room Air 03/09/17 19:15 37.0 96 18 121/72 (88) 96 Room Air 03/09/17 18:18 36.6 98 18 127/77 (94) 97 Room Air 03/09/17 17:55 Room Air 03/09/17 17:45 36.8 94 18 109/81 (90) 97 Room Air 03/09/17 17:20 36.8 94 18 126/76 (93) 98 Room Air 03/09/17 17:05 89 18 136/74 97 Room Air 03/09/17 16:50 36.4 97 18 139/75 96 Room Air 03/09/17 16:35 36.4 99 18 133/77 95 Room Air 03/09/17 16:20 36.4 102 18 130/81 97 Room Air 03/09/17 16:10 105 18 141/82 97 Room Air 03/09/17 16:00 113 18 140/83 96 Oxymask 10 03/09/17 15:50 107 18 144/86 96 Oxymask 03/09/17 15:40 36.5 120 18 173/77 96 Oxymask 10 03/09/17 09:51 36.8 85 18 123/84 (97) 98 Room Air Assessment & Plan Assessment: POD #1, Rt calcaneous orif Plan: NWB both LE'S, B/L calcaneal fx's w ORIF on the right ASA for dvt proph No pT needed D/C home today. Inhouse Planning Pain Management: Percocet DVT Prophylaxis: ASA Discharge Planning Discharge Planning: home Pain Management: Percocet DVT Prophylaxis: ASA
[2017-03-10] MEDS ORDERED: ACET-1138 PO (08:32)
[2017-03-10] MEDS ORDERED: ASPEC81 PO (08:32)
[2017-03-10] MEDS ORDERED: RXC5 PO (08:32)
--- NOTE | 2017-03-10 08:35 | Discharge Instructions ---
Discharge Instructions Date of Service Mar 10, 2017. Admission Reason for Admission: Right Ankle Displaced Closed Fracture Of Body Of C Discharge Discharge Diagnosis / Problem: ORIF Right calcaneal fracture, left calcaneal fracture. Discharge Goals Goal(s): Improve function Activity Recommendations Activity Limitations: as noted below . Instructions / Follow-Up Instructions / Follow-Up Non weight bearing both feet w wheel chair DVT prophylaxis, Aspirin daily. Ice/ elevate as needed Keep dressings/ splint/ cast clean DRY and in tact, DO NOT get wet or remove. Follow up w Dr. Veliz 10-12 days, call [facility] [phone] for appt. Current Hospital Diet Patient's current hospital diet: Regular Diet Discharge Diet Recommended Diet: Regular Diet Procedures Procedures Performed: Right Calcaneal Fracture Open Reduction Internal Fixation, Closed Treatment Navicular Fracture with Application Splint Pending Studies Studies pending at discharge: no Medical Emergencies . Who to Call and When: Medical Emergencies: If at any time you feel your situation is an emergency, please call 911 immediately. . Non-Emergent Contact Non-Emergency issues call your: Primary Care Provider . "Provider Documentation" section prepared by Ivan Adair. . VTE Core Measure Inpt VTE Proph given/why not?: Other Anticoagulation (asa), T.E.DAbby Stockings, SCD's [place] Drug Monitoring Program Search Results: patient reviewed within database, no issues identified
[2017-03-10] MEDS: DOCUSATE SODIUM 100 MG CAP PO SCH (08:44)
[2017-03-10] MEDS: PREGABALIN 75 MG CAP PO SCH (08:44)
[2017-03-10] MEDS ORDERED: ASPIRIN 81 MG ECTAB PO SCH (09:00)
[2017-03-10] MEDS ORDERED: MULTIVITAMIN TAB PO SCH (09:00)
[2017-03-10 09:40] VITALS: BP 116/66; PULSE 86; TEMP 36.9; O2SAT 97
--- NOTE | 2017-03-13 14:53 | DISCHARGE SUMMARY ---
DISCHARGE DIAGNOSES: Right calcaneus fracture, right navicular fracture. SECONDARY DIAGNOSIS: History of tobacco use. CONSULTS: None. COMPLICATIONS: None. PROCEDURES: Right calcaneal fracture open reduction and internal fixation, closed treatment navicular fracture with application of splint by Dr. Veliz on 03/09/2017. BRIEF HISTORY: As dictated in the history and physical. HOSPITAL SUMMARY: The patient was admitted on the above-noted date and had the above-noted surgery performed which he tolerated well. On his first postoperative day, he was feeling well and pain was controlled. He had no complaints. Calves were soft and nontender, neurovascularly intact. Cap refill was less than 2 seconds. Dressings were clean, dry and intact. Toes were mobile. He was alert and oriented and vital signs were stable. He was afebrile. He was nonweightbearing on both lower extremities. He was receiving aspirin for DVT prophylaxis. No PT was needed. His pain was controlled, and it was felt he could be discharged to home. For further review, please see chart. LAB AND X-RAY DATA: As per chart. DISCHARGE INSTRUCTIONS: The patient was discharged to home in satisfactory condition on 03/10/2017. DIET: Regular. ACTIVITY: Nonweightbearing both feet with wheelchair. DVT prophylaxis with aspirin daily. Ice and elevate as needed. Keep dressings and splint clean, dry and intact; do not get wet or remove. Follow up with Dr. Veliz in 10-12 days, the patient to call for appointment. DISCHARGE MEDICATIONS: Acetaminophen 2 tabs p.o. q. 8 hours, aspirin 81 mg p.o. daily, oxycodone 5-10 mg p.o. q. 4 hours p.r.n. Resume taking potassium 4 tabs p.o. b.i.d. and stop taking [place].
== END 2017-03-10 10:51 | disposition home or self-care (01) ==
LOC: C.ACU 08:48 → C.3E 15:52 → ENRESERV 16:56
PROVIDERS: ADMIT Orthopaedic Surgery Sports Medicine; ATTEND Orthopaedic Surgery Sports Medicine
DX: S92.001A Unspecified fracture of right calcaneus, initial encounter for closed fracture (principal); S92.251A Displaced fracture of navicular [scaphoid] of right foot, initial encounter for closed fracture; W17.89XA Other fall from one level to another, initial encounter; F17.210 Nicotine dependence, cigarettes, uncomplicated

== ENCOUNTER → 2018-01-31 | Outpatient (CLI) | payer OTHER ==
[~2018-01-31] MED LIST changes: -BUPIVACAINE 0.5 % 5 MG/1 ML PF 10ML VIAL ONE; -CEFAZOLIN 2000 MG/60 ML D5W IV SCH; +CYAN1LOZ PO; -HYDR-5688 PO; -LACTATED RINGER'S 1000ML 1,000 ML IV SCH; +MELO-84 PO; +NRN300 PO; +POTA8CAP6 PO; -POTASSIUM PO; +PRLSR20 PO; +RANI150T85 PO
== END | disposition home or self-care (01) ==
LOC: C.RDSM 11:23
PROVIDERS: ATTEND Podiatrist
DX: M79.671 Pain in right foot (principal)

== ENCOUNTER 2021-03-30 15:25 | Inpatient (IN) ==
[2021-03-30] MEDS ORDERED: LORazepam 1 ML IM ONE (15:45)
[2021-03-30] MEDS ORDERED: HALOPERIDOL LACTATE 5 MG/ML 1 ML VIAL IM ONE (15:45)
[2021-03-30] MEDS ORDERED: NALOXONE HCL 0.4 MG/1 ML VIAL/CARP ONE (15:46)
[2021-03-30] MEDS ORDERED: LORazepam 2 MG/4 ML VIAL ONE ×2 (15:59→18:10)
--- NOTE | 2021-03-30 15:59 | Emergency Department Note ---
History of Present Illness General Chief complaint: Overdose (Intentional) Stated complaint: SON WAS IN BATHROOM, EROTIC BEHAVIOR Time Seen by Provider: 03/30/21 15:35 Source: family (Father) Mode of arrival: EMS Limitations: altered mental status History of Present Illness Provider complaint: Altered mental status Onset (ago): hour(s) Location: head Severity: severe Pain Consistency: + constant Maximum Pain Intensity: 0 Associated symptoms: no fever/chills or no nausea/vomiting This is a 50-year-old male with a prior history of drug abuse presenting with altered mental status just prior to arrival. The patient is unable to provide history as he is very combative and altered. His father is providing history. He states that they went to the store together to buy some things. He went to the bathroom at 1 point and came back out. He seemed fine at that time but as they were driving home the patient became very confused and altered. According to the nurses he has drug paraphernalia in his pockets. He has a drug pipe and what appears to be crystal meth. He has small packets labeled new high score ultimate level which I looked up and appears to be heroin. Home Medications Medication Instructions Recorded Confirmed Type gabapentin 600 mg tablet 600 mg PO DIRECTED 03/12/21 03/12/21 History pregabalin 75 mg capsule (Lyrica) 75 mg PO DIRECTED 03/12/21 03/12/21 History tramadol 50 mg tablet 50 mg PO DIRECTED PRN 03/12/21 03/12/21 History Allergies Allergy/AdvReac Type Severity Reaction Status Date / Time No Known Allergies Allergy Verified 03/12/21 16:53 Past Med/Surg History Medical History Anemia Closed navicular fracture of right foot Closed right calcaneal fracture Duodenal ulcer Esophageal ulcer Fall GI bleed UPPER AND LOWER Hypokalemia Surgical History History of esophagogastroduodenoscopy (EGD) (02/2018) History of open reduction and internal fixation (ORIF) procedure R ANKLE History of tooth extraction WISDOM TEETH Family History Grandmother Family history of diabetes mellitus PATERNAL Father Family hx colonic polyps Myocardial infarction Social History Smoking Status: Current some day smoker Tobacco Type: Cigarettes Second Hand Exposure: No; Hx Alcohol Use: No Hx Substance Use: No Preferred Language: Taiwanese Communication Ability: Effective Beliefs That Will Affect Care: None marital status: Single Current Living Situation: Family Current Living Situation Comment: LIVES WITH SISTER current occupational status: employed Feels Safe at Home: Yes Assistive Devices: Glasses Review of Systems See HPI for pertinent positives & negatives. Unobtainable due to cognitive status Physical Exam Vital Signs Vital Signs - 24 hr 03/30/21 15:33 03/30/21 16:41 03/30/21 16:42 Temperature 36.8 C Temperature Source Oral Pulse Rate 134 H Pulse Rate [Apical] Respiratory Rate 12 Blood Pressure 131/68 Blood Pressure [Left Arm] Blood Pressure Mean 89 Blood Pressure Mean [Left Arm] Pulse Oximetry 89 L 87 L 99 Oxygen Delivery Method Room Air Non-rebreather Non-rebreather Oxygen Flow Rate 0 Sepsis Recent Fever Within 48 Hours No Sepsis New/Unexplained Change in Mental Status No Sepsis Action Taken by Nursing No Action Required Oxygen Flow Rate - Titration 15 Pulse Oximetry Post Tiitration 99 03/30/21 17:26 03/30/21 19:13 03/30/21 20:08 Temperature Temperature Source Pulse Rate Pulse Rate [Apical] 84 88 88 Respiratory Rate 12 15 14 Blood Pressure Blood Pressure [Left Arm] 126/75 122/81 128/81 Blood Pressure Mean Blood Pressure Mean [Left Arm] 92 94 96 Pulse Oximetry 99 97 99 Oxygen Delivery Method Non-rebreather Non-rebreather Oxygen Flow Rate 15 Sepsis Recent Fever Within 48 Hours Sepsis New/Unexplained Change in Mental Status Sepsis Action Taken by Nursing Oxygen Flow Rate - Titration Pulse Oximetry Post Tiitration 03/30/21 21:50 Temperature Temperature Source Pulse Rate Pulse Rate [Apical] 88 Respiratory Rate 16 Blood Pressure Blood Pressure [Left Arm] 142/80 H Blood Pressure Mean Blood Pressure Mean [Left Arm] 100 Pulse Oximetry 100 Oxygen Delivery Method Oxygen Flow Rate Sepsis Recent Fever Within 48 Hours Sepsis New/Unexplained Change in Mental Status Sepsis Action Taken by Nursing Oxygen Flow Rate - Titration Pulse Oximetry Post Tiitration The physical exam is limited due to the patient's condition. Constitutional: Vital signs reviewed. Combative and nonverbal. Eyes: Pupils are equal round reactive to light. Conjunctiva are noninjected. HENT: Normocephalic atraumatic. Respiratory: Clear to auscultation bilaterally. Breath sounds are equal bilaterally. Cardiovascular: Tachycardic. Regular rhythm. GI: Soft, nondistended and nontender. Bowel sounds are present. Musculoskeletal: No peripheral edema. Integumentary: No cyanosis. Neurological: The patient is combative. Moves all extremities. Psychiatric: Unable to assess. Procedures Intubation Time out performed: Yes sedative: Etomidate Mg Given: 20 paralytic: Succinylcholine Mg Given: 135 Laryngoscope: fiber optic video scope ET Tube Size: 7.5 ET Tube Uncuffed: No Tube Secured Depth (cm): 23 Tube Secured Location: lips Tube Placement Confirmation: visualized tube passing through cords, equal breath sounds bilaterally, no breath sounds over epigastrium and confirmation by capnometry Patient Tolerated Procedure: well and no complications Intubation Complications: none Course Administered Medications Sodium Chloride (Nss 1000ml) 1,000 mls @ 150 mls/hr IV .[id number] [facility] Stop: 04/29/21 17:29 Last Admin: 03/30/21 18:01 Dose: 150 mls/hr Documented by: [id number] Discontinued Medications Dextrose (Dextrose 50% 50 Ml Syringe) Confirm Administered Dose 50 ml IV .STK- MED ONE Stop: 03/30/21 16:02 Last Admin: 03/30/21 16:04 Dose: 50 ml Documented by: [id number] Haloperidol Lactate (Haloperidol Lactate 5 Mg/Ml 1 Ml Vial) 5 mg IM NOW ONE Stop: 03/30/21 15:46 Last Admin: 03/30/21 15:35 Dose: 5 mg Documented by: [id number] Lorazepam (Ativan) 1 mls @ 0 mls/min IM NOW ONE Stop: 03/30/21 15:46 Last Admin: 03/30/21 15:35 Dose: 1 mls/min Documented by: [id number] Lorazepam (Ativan) 1 mg in 2 mls @ 2 mls/min IV NOW STA Stop: 03/30/21 18:11 Last Admin: 03/30/21 18:24 Dose: 2 mls/min Documented by: [id number] Piperacillin Sod/Tazobactam Sod (Zosyn) 4.5 gm in 120 mls @ 240 mls/hr IV NOW ONE Stop: 03/30/21 20:40 Last Admin: 03/30/21 20:56 Dose: 240 mls/hr Documented by: [id number] Lorazepam (Lorazepam 2 Mg/4 Ml Vial) Confirm Administered Dose 2 mg .ROUTE .STK- MED ONE Stop: 03/30/21 16:00 Last Increment: 03/30/21 19:11 Dose: 1 mg Documented by: [id number] Increment: 03/30/21 16:02 Dose: 1 mg Documented by: [id number] Lorazepam (Lorazepam 2 Mg/4 Ml Vial) Confirm Administered Dose 2 mg .ROUTE .STK- MED ONE Stop: 03/30/21 18:11 Last Admin: 03/30/21 18:26 Dose: Not Given Documented by: [id number] Miscellaneous (Rapid Sequence Induction Bag) Confirm Administered Dose 1 ea .ROUTE .STK-MED ONE Stop: 03/30/21 21:06 Last Admin: 03/30/21 21:22 Dose: 1 ea Documented by: [id number] Naloxone HCl (Naloxone Hcl 0.4 Mg/1 Ml Vial/Carp) Confirm Administered Dose 0.4 mg .ROUTE .STK-MED ONE Stop: 03/30/21 15:47 Last Admin: 03/30/21 17:32 Dose: Not Given Documented by: [id number] Propofol (Propofol Iv Emulsion 10 Mg/Ml 100 Ml Vial) Confirm Administered Dose 1,000 mg IV .STK-MED ONE Stop: 03/30/21 21:19 Last Admin: 03/30/21 21:47 Dose: 1,000 mg Documented by: [id number] Cosigned by: [id number] Critical Care Time Critical Care Time: Yes Total Critical Care Time: 50 I have personally spent approximately 50 minutes of critical care time in the direct management of this patient. This includes bedside care, interpretation of diagnostic studies, and testing, discussion with consultants, patient, and family members, and other required patient management activities. These minutes are in excess of all separately billable procedures. Medical Decision Making Differential Diagnosis Methamphetamine abuse, overdose, metabolic derangement, intracranial hemorrhage, polysubstance abuse Medical Records Attestation: I reviewed the patient's medical records. I did perform a limited focused review of portions of the patient's old chart on the electronic medical record. The patient was seen here on March 12 for altered mental status and seizure-like activity that was felt not to be secondary to seizures according to the evaluating physician. He had a negative CT scan of his head and admitted to opiate abuse. He was discharged for outpatient follow-up. Home Medications Current Medication List: was personally reviewed by me Laboratory Data Attestation: I reviewed the patient's lab results. Result diagrams: 03/30/21 15:49 03/30/21 15:49 Lab Results 03/30/21 03/30/21 03/30/21 Range/Units 15:49 15:49 15:49 WBC 18.24 H (4.8-10.8) K/uL RBC 4.23 L (4.7-6.1) M/uL Hgb 13.0 L (14.0-18.0) g/dL POC Hgb (14.0-18.0) g/dl Hct 38.1 L (42-52) % POC Hct (42-52) % MCV 90.1 (80-100) fL MCH 30.7 (25-34) pg MCHC 34.1 (32-36) g/dL RDW Std Deviation 42.9 (36.4-46.3) fL RDW Coeff of Dilan 13.1 (11.5-14.5) % Plt Count 269 (130-400) K/uL MPV 10.2 (7.4-10.4) fL Immature Gran % (Auto) 0.3 % Neut % (Auto) 71.8 % Lymph % (Auto) 13.9 % [place] % (Auto) 13.4 % Eos % (Auto) 0.4 % Baso % (Auto) 0.2 % Neut # (Auto) 13.10 H (1.4-6.5) K/uL Lymph # (Auto) 2.54 (1.2-3.4) K/uL [place] # (Auto) 2.44 H (0.11-0.59) K/uL Eos # (Auto) 0.08 (0-0.5) K/uL Baso # (Auto) 0.03 (0-0.2) K/uL Immature Gran # (Auto) 0.05 H (0.00-0.02) K/uL POC Sodium (135-144) mmol/L Sodium 138 (136-145) mmol/L POC Potassium (3.3-5.0) mmol/L Potassium 3.9 (3.5-5.1) mmol/L POC Chloride (101-112) mmol/L Chloride 107 (98-107) mmol/L Carbon Dioxide 23 (21-32) mmol/L POC Total CO2 (24-31) mmol/L Anion Gap 8.0 (3-11) POC Anion Gap (16-25) mmol/L POC BUN (7-18) mg/dl BUN 16 (7-18) mg/dl Creatinine 1.04 (0.6-1.4) mg/dl POC Creatinine (0.6-1.3) mg/dl Est Cr Clr Drug Dosing 86.9 ml/min Est GFR ( Amer) 97.9 ml/min Est GFR (Non-Af Amer) 84.5 ml/min BUN/Creatinine Ratio 14.9 (10-20) Glucose 84 (70-99) mg/dl POC Glucose (other) (70-99) mg/dl Lactate (0.4-2.0) mmol/L Calcium 8.4 L (8.5-10.1) mg/dl POC Ioniz Calcium Bk (1.12-1.32) mmol/l Magnesium 2.1 (1.8-2.4) mg/dl Total Bilirubin 0.8 (0.2-1) mg/dl AST 42 H (15-37) U/L ALT 31 (12-78) U/L Alkaline Phosphatase 68 (45-117) U/L Total Creatine Kinase 1204 H (39-308) U/L Troponin I < 0.015 (0-0.045) ng/ml Total Protein 6.6 (6.4-8.2) gm/dl Albumin 3.4 (3.4-5.0) gm/dl Globulin 3.2 (2.5-4.0) gm/dl Albumin/Globulin Ratio 1.1 (0.9-2) Urine Color Urine Appearance (Clear) Urine pH (4.5-7.5) Ur Specific [place] (1.000-1.030) Urine Protein (Negative) Urine Glucose (UA) (Negative) Urine Ketones (Negative) Urine Blood (Negative) Urine Nitrite (Negative) Urine Bilirubin (Negative) Urine Urobilinogen (Negative) Ur Leukocyte Esterase (Negative) Salicylates < 1.7 L (2.8-20) mg/dl Urine Opiates Screen (Neg) Ur Methadone, Qual (Neg) Acetaminophen < 2 L (10-30) ug/ml Urine Barbiturates (Neg) Ur Phencyclidine (PCP) (Neg) U Amphetamin/Meth Scrn (Neg) MDMA (Ecstasy) Screen (Neg) U Benzodiazepines Scrn (Neg) Ur Cocaine Metabolite (Neg) U Marijuana (THC) Screen (Neg) Ethyl Alcohol mg/dL (0-3) mg/dl COVID-19 Eval Order SARS-CoV-2 (PCR) (Negative) 03/30/21 03/30/21 03/30/21 Range/Units 15:49 15:58 17:18 WBC (4.8-10.8) K/uL RBC (4.7-6.1) M/uL Hgb (14.0-18.0) g/dL POC Hgb 11.2 L (14.0-18.0) g/dl Hct (42-52) % POC Hct 33 L (42-52) % MCV (80-100) fL MCH (25-34) pg MCHC (32-36) g/dL RDW Std Deviation (36.4-46.3) fL RDW Coeff of Dilan (11.5-14.5) % Plt Count (130-400) K/uL MPV (7.4-10.4) fL Immature Gran % (Auto) % Neut % (Auto) % Lymph % (Auto) % [place] % (Auto) % Eos % (Auto) % Baso % (Auto) % Neut # (Auto) (1.4-6.5) K/uL Lymph # (Auto) (1.2-3.4) K/uL [place] # (Auto) (0.11-0.59) K/uL Eos # (Auto) (0-0.5) K/uL Baso # (Auto) (0-0.2) K/uL Immature Gran # (Auto) (0.00-0.02) K/uL POC Sodium 142 (135-144) mmol/L Sodium (136-145) mmol/L POC Potassium 3.5 (3.3-5.0) mmol/L Potassium (3.5-5.1) mmol/L POC Chloride 107 (101-112) mmol/L Chloride (98-107) mmol/L Carbon Dioxide (21-32) mmol/L POC Total CO2 20 L (24-31) mmol/L Anion Gap (3-11) POC Anion Gap 20.0 (16-25) mmol/L POC BUN 14 (7-18) mg/dl BUN (7-18) mg/dl Creatinine (0.6-1.4) mg/dl POC Creatinine 0.8 (0.6-1.3) mg/dl Est Cr Clr Drug Dosing ml/min Est GFR ( Amer) ml/min Est GFR (Non-Af Amer) ml/min BUN/Creatinine Ratio (10-20) Glucose (70-99) mg/dl POC Glucose (other) 73 (70-99) mg/dl Lactate (0.4-2.0) mmol/L Calcium (8.5-10.1) mg/dl POC Ioniz Calcium Bk 1.02 L (1.12-1.32) mmol/l Magnesium (1.8-2.4) mg/dl Total Bilirubin (0.2-1) mg/dl AST (15-37) U/L ALT (12-78) U/L Alkaline Phosphatase (45-117) U/L Total Creatine Kinase (39-308) U/L Troponin I (0-0.045) ng/ml Total Protein (6.4-8.2) gm/dl Albumin (3.4-5.0) gm/dl Globulin (2.5-4.0) gm/dl Albumin/Globulin Ratio (0.9-2) Urine Color Urine Appearance (Clear) Urine pH (4.5-7.5) Ur Specific [place] (1.000-1.030) Urine Protein (Negative) Urine Glucose (UA) (Negative) Urine Ketones (Negative) Urine Blood (Negative) Urine Nitrite (Negative) Urine Bilirubin (Negative) Urine Urobilinogen (Negative) Ur Leukocyte Esterase (Negative) Salicylates (2.8-20) mg/dl Urine Opiates Screen (Neg) Ur Methadone, Qual (Neg) Acetaminophen (10-30) ug/ml Urine Barbiturates (Neg) Ur Phencyclidine (PCP) (Neg) U Amphetamin/Meth Scrn (Neg) MDMA (Ecstasy) Screen (Neg) U Benzodiazepines Scrn (Neg) Ur Cocaine Metabolite (Neg) U Marijuana (THC) Screen (Neg) Ethyl Alcohol mg/dL < 3.0 (0-3) mg/dl COVID-19 Eval Order Covid19 at [facility] SARS-CoV-2 (PCR) (Negative) 03/30/21 03/30/21 03/30/21 Range/Units 17:18 20:29 20:58 WBC (4.8-10.8) K/uL RBC (4.7-6.1) M/uL Hgb (14.0-18.0) g/dL POC Hgb (14.0-18.0) g/dl Hct (42-52) % POC Hct (42-52) % MCV (80-100) fL MCH (25-34) pg MCHC (32-36) g/dL RDW Std Deviation (36.4-46.3) fL RDW Coeff of Dilan (11.5-14.5) % Plt Count (130-400) K/uL MPV (7.4-10.4) fL Immature Gran % (Auto) % Neut % (Auto) % Lymph % (Auto) % [place] % (Auto) % Eos % (Auto) % Baso % (Auto) % Neut # (Auto) (1.4-6.5) K/uL Lymph # (Auto) (1.2-3.4) K/uL [place] # (Auto) (0.11-0.59) K/uL Eos # (Auto) (0-0.5) K/uL Baso # (Auto) (0-0.2) K/uL Immature Gran # (Auto) (0.00-0.02) K/uL POC Sodium (135-144) mmol/L Sodium (136-145) mmol/L POC Potassium (3.3-5.0) mmol/L Potassium (3.5-5.1) mmol/L POC Chloride (101-112) mmol/L Chloride (98-107) mmol/L Carbon Dioxide (21-32) mmol/L POC Total CO2 (24-31) mmol/L Anion Gap (3-11) POC Anion Gap (16-25) mmol/L POC BUN (7-18) mg/dl BUN (7-18) mg/dl Creatinine (0.6-1.4) mg/dl POC Creatinine (0.6-1.3) mg/dl Est Cr Clr Drug Dosing ml/min Est GFR ( Amer) ml/min Est GFR (Non-Af Amer) ml/min BUN/Creatinine Ratio (10-20) Glucose (70-99) mg/dl POC Glucose (other) (70-99) mg/dl Lactate 0.8 (0.4-2.0) mmol/L Calcium (8.5-10.1) mg/dl POC Ioniz Calcium Bk (1.12-1.32) mmol/l Magnesium (1.8-2.4) mg/dl Total Bilirubin (0.2-1) mg/dl AST (15-37) U/L ALT (12-78) U/L Alkaline Phosphatase (45-117) U/L Total Creatine Kinase (39-308) U/L Troponin I (0-0.045) ng/ml Total Protein (6.4-8.2) gm/dl Albumin (3.4-5.0) gm/dl Globulin (2.5-4.0) gm/dl Albumin/Globulin Ratio (0.9-2) Urine Color Dark Yellow Urine Appearance Clear (Clear) Urine pH 5.0 (4.5-7.5) Ur Specific [place] 1.027 (1.000-1.030) Urine Protein Negative (Negative) Urine Glucose (UA) Negative (Negative) Urine Ketones 1+ H (Negative) Urine Blood Negative (Negative) Urine Nitrite Negative (Negative) Urine Bilirubin Negative (Negative) Urine Urobilinogen Negative (Negative) Ur Leukocyte Esterase Negative (Negative) Salicylates (2.8-20) mg/dl Urine Opiates Screen (Neg) Ur Methadone, Qual (Neg) Acetaminophen (10-30) ug/ml Urine Barbiturates (Neg) Ur Phencyclidine (PCP) (Neg) U Amphetamin/Meth Scrn (Neg) MDMA (Ecstasy) Screen (Neg) U Benzodiazepines Scrn (Neg) Ur Cocaine Metabolite (Neg) U Marijuana (THC) Screen (Neg) Ethyl Alcohol mg/dL (0-3) mg/dl COVID-19 Eval Order SARS-CoV-2 (PCR) NEGATIVE (Negative) 03/30/21 Range/Units 20:58 WBC (4.8-10.8) K/uL RBC (4.7-6.1) M/uL Hgb (14.0-18.0) g/dL POC Hgb (14.0-18.0) g/dl Hct (42-52) % POC Hct (42-52) % MCV (80-100) fL MCH (25-34) pg MCHC (32-36) g/dL RDW Std Deviation (36.4-46.3) fL RDW Coeff of Dilan (11.5-14.5) % Plt Count (130-400) K/uL MPV (7.4-10.4) fL Immature Gran % (Auto) % Neut % (Auto) % Lymph % (Auto) % [place] % (Auto) % Eos % (Auto) % Baso % (Auto) % Neut # (Auto) (1.4-6.5) K/uL Lymph # (Auto) (1.2-3.4) K/uL [place] # (Auto) (0.11-0.59) K/uL Eos # (Auto) (0-0.5) K/uL Baso # (Auto) (0-0.2) K/uL Immature Gran # (Auto) (0.00-0.02) K/uL POC Sodium (135-144) mmol/L Sodium (136-145) mmol/L POC Potassium (3.3-5.0) mmol/L Potassium (3.5-5.1) mmol/L POC Chloride (101-112) mmol/L Chloride (98-107) mmol/L Carbon Dioxide (21-32) mmol/L POC Total CO2 (24-31) mmol/L Anion Gap (3-11) POC Anion Gap (16-25) mmol/L POC BUN (7-18) mg/dl BUN (7-18) mg/dl Creatinine (0.6-1.4) mg/dl POC Creatinine (0.6-1.3) mg/dl Est Cr Clr Drug Dosing ml/min Est GFR ( Amer) ml/min Est GFR (Non-Af Amer) ml/min BUN/Creatinine Ratio (10-20) Glucose (70-99) mg/dl POC Glucose (other) (70-99) mg/dl Lactate (0.4-2.0) mmol/L Calcium (8.5-10.1) mg/dl POC Ioniz Calcium Bk (1.12-1.32) mmol/l Magnesium (1.8-2.4) mg/dl Total Bilirubin (0.2-1) mg/dl AST (15-37) U/L ALT (12-78) U/L Alkaline Phosphatase (45-117) U/L Total Creatine Kinase (39-308) U/L Troponin I (0-0.045) ng/ml Total Protein (6.4-8.2) gm/dl Albumin (3.4-5.0) gm/dl Globulin (2.5-4.0) gm/dl Albumin/Globulin Ratio (0.9-2) Urine Color Urine Appearance (Clear) Urine pH (4.5-7.5) Ur Specific [place] (1.000-1.030) Urine Protein (Negative) Urine Glucose (UA) (Negative) Urine Ketones (Negative) Urine Blood (Negative) Urine Nitrite (Negative) Urine Bilirubin (Negative) Urine Urobilinogen (Negative) Ur Leukocyte Esterase (Negative) Salicylates (2.8-20) mg/dl Urine Opiates Screen Neg (Neg) Ur Methadone, Qual Neg (Neg) Acetaminophen (10-30) ug/ml Urine Barbiturates Neg (Neg) Ur Phencyclidine (PCP) Neg (Neg) U Amphetamin/Meth Scrn Pos H (Neg) MDMA (Ecstasy) Screen Pos H (Neg) U Benzodiazepines Scrn Neg (Neg) Ur Cocaine Metabolite Neg (Neg) U Marijuana (THC) Screen Neg (Neg) Ethyl Alcohol mg/dL (0-3) mg/dl COVID-19 Eval Order SARS-CoV-2 (PCR) (Negative) Imaging Data Attestation: I personally reviewed and interpreted this imaging study as follows: My Impression: Post intubation chest x-ray per my interpretation shows no evidence of pneumothorax. The ET tube is 4 cm from the loren. Radiologist's Impression: Chest X-Ray 03/30/21 15:35 XR chest 1V portable CLINICAL HISTORY: ams TECHNIQUE: Single frontal radiograph of the chest was obtained. Comparison: Comparison is made to chest one view 03/12/2021 FINDINGS: No lines and tubes are seen. The cardiomediastinal silhouette is normal. Sc attered predominantly perihilar airspace opacities are seen. No evidence of pleural effusion or pneumothorax. IMPRESSION: Scattered predominantly perihilar airspace opacities are seen which may reflect atelectasis, pneumonia, and/or aspiration. Right lower lung airspace opacities have somewhat improved from the prior exam. ACT 112: Negative or not required by law. Electronically signed by: Yuriy Lutz M.D. 03/30/2021 4:[address] 03/30/21 15:36 CT SCAN OF THE BRAIN WITHOUT IV CONTRAST CLINICAL HISTORY: Change in mental status COMPARISON STUDY: CT of the brain dated 03/12/2021. TECHNIQUE: Unenhanced axial CT scan of the brain is performed from the vertex to the skull base. A dose lowering technique was utilized adhering to the principles of ALARA. The examination is modestly degraded by motion artifact. CT DOSE: 1228.53 mGy.cm FINDINGS: Brain parenchyma: The brain parenchyma is normal in appearance. There is no hemorrhage, mass effect, or evidence of acute territorial ischemia by CT criteria. Baptiste-white matter differentiation is preserved. No extra-axial fluid collection is seen. Ventricles, sulci, cisterns: Normal in configuration. Intracranial vasculature: The visualized intracranial vasculature at the skull base is normal in appearance. Calvarium: Unremarkable. Sinuses and mastoids: There is trace mucosal thickening within the left maxillary antrum. The remaining paranasal sinuses are clear. The mastoid air cells are well pneumatized. Orbits: The bony orbits are grossly intact. IMPRESSION: No acute intracranial abnormality. ACT 112: Negative or not required by law. Electronically signed by: Chapin Aguilar M.D. 03/30/2021 4:32 PM ECG Data Attestation: I personally reviewed and interpreted this ECG as follows: Indication: + altered mental status and + toxicologic Rate (beats per minute): 93 Rhythm: + normal sinus ECG Intervals/blocks: + Normal QRS and + Normal QT ECG [place]: + Normal ECG ST segments: no ST elevation ECG Findings: no PVCs MDM Narrative I did evaluate the patient as noted above. He is brought in for altered mental status. His father provides history. He states that they were at the store together and he was fine. He went to the bathroom and when they drove home he started having severe altered mental status. Drug paraphernalia as well as heroin and crystal meth was found in his pockets. He was extremely combative and agitated here. We could not verbally talk him down and so he required physical as well as chemical restraints. Initially given Haldol 5 mg IM and Ativan 2 mg IM. IV access was established. He was given another 1 mg Ativan IV for further agitation. I did place an order for continuous cardiac monitoring. The monitor showed sinus tachycardia at a rate of 120 bpm. I did order and personally review the patient's 12-lead EKG as described above. He has no evidence of widening of his QRS or prolonged QT interval. He has no acute ischemic changes. I did order and personally reviewed the images of the patient's chest x-ray as described above. He has perihilar infiltrates concerning for aspiration pneumonia. I did order a urine analysis. There is no evidence of pneumonia. I did order and review the patient's blood work as noted in the electronic medical record. His white blood cell count is 18.24. Hemoglobin is 13. Platelet count is 269. Electrolytes are unremarkable. He did have a glucose of 73 and so I did give him a half amp of D50 IV. His total creatinine kinase was 1204. He was started on normal saline IV. Troponin is negative. Alcohol, salicylate and acetaminophen are negative. Covid testing is negative. I did obtain blood cultures. I did treat him with Zosyn IV for possible aspiration pneumonia given his repeated drug use. I did order a CT of the head. I did review the images myself as well as the radiology report as described above. There is no evidence of acute intracranial abnormality. I did reassess the patient multiple times. I did discuss test results with the patient's parents. He continued to be agitated and nonverbal throughout his ED stay. He was given a total of 5 mg of Ativan, 2 of which were given IM and 3 g iven IV. He remained alternately agitated and obtunded. I did recommend hospitalization. I did discuss the case with the hospitalist and porter sample case. The hospitalist team did wish to admit him to the ICU. They spoke to the ICU who wanted him intubated for airway protection. The family agreed to intubation. I did perform RSI as described above. No complications. I did order a repeat chest x-ray which showed the ET tube was 4 cm above the loren. It was advanced 2 cm. The patient was placed on a propofol drip and transferred to the ICU. Impression & Plan Drug overdose, Acute alteration in mental status, Aspiration pneumonia Discharge Plan Visit Data Chief Complaint: Overdose (Intentional) Stated Complaint: SON WAS IN BATHROOM, EROTIC BEHAVIOR ED Provider: Ed Lobo Discharge Problem: Drug overdose, Acute alteration in mental status, Aspiration pneumonia Patient Disposition: Admitted As Inpatient Discharge Instructions Interventions: ED Discharge Assessment Last Done: 03/30/21 22:00 Forms Stand Alone Forms: [facility] [employer], Suicide Prevention Resources Prescriptions Prescriptions: No Action gabapentin 600 mg Tablet 600 mg PO DIRECTED RF: 0 tramadol 50 mg Tablet 50 mg PO DIRECTED PRN (Reason: Pain) RF: 0 pregabalin [Lyrica] 75 mg Capsule 75 mg PO DIRECTED RF: 0 Referrals Referrals: Ted King MD [Primary Care Provider] - Discharge Problem: Drug overdose Qualifiers: Encounter type: initial encounter Injury intent: undetermined intent Qualified Code(s): T50.904A - Poisoning by unspecified drugs, medicaments and biological substances, undetermined, initial encounter Aspiration pneumonia Qualifiers: Aspiration pneumonia type: unspecified Laterality: bilateral Lung location: unspecified part of lung Qualified Code(s): J69.0 - Pneumonitis due to inhalation of food and vomit
[2021-03-30] MEDS ORDERED: DEXTROSE 50% 50 ML SYRINGE IV ONE ×2 (16:01→16:15)
[2021-03-30 16:08] LABS: Basophils # (auto) 0.03 K/uL (0-0.2); Basophils % (auto) 0.2 %; Eosinophils # (auto) 0.08 K/uL (0-0.5); Eosinophils % (auto) 0.4 %; Hematocrit (blood only) 38.1 % (42-52); Immature Granulocytes # (auto) 0.05 K/uL (0.00-0.02); Immature Granulocytes % (auto) 0.3 %; Lymphocytes # (auto) 2.54 K/uL (1.2-3.4); Lymphocytes % (auto) 13.9 %; Mean Corpuscular Hemoglobin 30.7 pg (25-34); Mean Corpuscular Hgb Conc 34.1 g/dL (32-36); Mean Corpuscular Volume 90.1 fL (80-100); Mean Platelet Volume 10.2 fL (7.4-10.4); Monocytes # (auto) 2.44 K/uL (0.11-0.59); Monocytes % (auto) 13.4 %; Neutrophils % (auto) 71.8 %; Platelet Count 269 K/uL (130-400); RDW Coefficient of Variation 13.1 % (11.5-14.5); RDW Standard Deviation 42.9 fL (36.4-46.3); Red Blood Count 4.23 M/uL (4.7-6.1); White Blood Count 18.24 K/uL (4.8-10.8)
[2021-03-30 16:12] LABS: iSTAT Creatinine 0.8 mg/dl (0.6-1.3); iSTAT Hemoglobin 11.2 g/dl (14.0-18.0); iSTAT Ionized Calcium 1.02 mmol/l (1.12-1.32); iSTAT Potassium 3.5 mmol/L (3.3-5.0)
[2021-03-30] MEDS ORDERED: LORazepam 1 MG/2 ML VIAL IV ONE (16:15)
[2021-03-30 16:28] LABS: Alanine Aminotransferase 31 U/L (12-78); Albumin Level 3.4 gm/dl (3.4-5.0); Aspartate Aminotransferase 42 U/L (15-37); BUN Creatinine Ratio 14.9 (10-20); Blood Urea Nitrogen 16 mg/dl (7-18); Calcium 8.4 mg/dl (8.5-10.1); Carbon Dioxide 23 mmol/L (21-32); Chloride 107 mmol/L (98-107); Creatinine Clr Calc Pharmacy 86.9 ml/min; Est GFR (African American) 97.9 ml/min; Est GFR (Non-African American) 84.5 ml/min; Glucose 84 mg/dl (70-99); Magnesium 2.1 mg/dl (1.8-2.4); Potassium 3.9 mmol/L (3.5-5.1); Sodium 138 mmol/L (136-145)
[2021-03-30 16:33] LABS: Acetaminophen < 2 ug/ml (10-30); Salicylate < 1.7 mg/dl (2.8-20)
--- NOTE | 2021-03-30 16:33 | CT Scan Report ---
CT SCAN OF THE BRAIN WITHOUT IV CONTRAST CLINICAL HISTORY: Change in mental status COMPARISON STUDY: CT of the brain dated 03/12/2021. TECHNIQUE: Unenhanced axial CT scan of the brain is performed from the vertex to the skull base. A d ose lowering technique was utilized adhering to the principles of ALARA. The examination is modestly degraded by motion artifact. CT DOSE: 1228.53 mGy.cm FINDINGS: Brain parenchyma: The brain parenchyma is normal in appearance. There is no hemorrhage, mass effect, or evidence of acute territorial ischemia by CT criteria. Baptiste-white matter differentiation is preser arabella. No extra-axial fluid collection is seen. Ventricles, sulci, cisterns: Normal in configuration. Intracranial vasculature: The visualized intracranial vasculature at the skull base is normal in appe arance. Calvarium: Unremarkable. Sinuses and mastoids: There is trace mucosal thickening within the left maxillary antrum. The remaini ng paranasal sinuses are clear. The mastoid air cells are well pneumatized. Orbits: The bony orbits are grossly intact. IMPRESSION: No acute intracranial abnormality. ACT 112: Negative or not required by law. Electronically signed by: Chapin Aguilar M.D. 03/30/2021 4:32 PM
--- NOTE | 2021-03-30 16:37 | XRay Report ---
XR chest 1V portable CLINICAL HISTORY: ams TECHNIQUE: Single frontal radiograph of the chest was obtained. Comparison: Comparison is made to chest one view 03/12/2021 FINDINGS: No lines and tubes are seen. The cardiomediastinal silhouette is normal. Scattered predominantly arabella hilar airspace opacities are seen. No evidence of pleural effusion or pneumothorax. IMPRESSION: Scattered predominantly perihilar airspace opacities are seen which may reflect atelectasis, pneumoni a, and/or aspiration. Right lower lung airspace opacities have somewhat improved from the prior exam. ACT 112: Negative or not required by law. Electronically signed by: Yuriy Lutz M.D. 03/30/2021 4:35 PM
[2021-03-30 16:43] LABS: Albumin Globulin Ratio 1.1 (0.9-2); Alkaline Phosphatase 68 U/L (45-117); Bilirubin,Total 0.8 mg/dl (0.2-1); Creatine Kinase 1204 U/L (39-308); Globulin 3.2 gm/dl (2.5-4.0); Total Protein 6.6 gm/dl (6.4-8.2); Troponin I < 0.015 ng/ml (0-0.045)
[2021-03-30] MEDS ORDERED: SODIUM CHLORIDE 0.9% 1000ML 1,000 ML IV SCH (17:30)
[2021-03-30] MEDS ORDERED: LORazepam 1 MG/2 ML VIAL IV STA (18:10)
[2021-03-30] MEDS ORDERED: PIPERACILLIN/TAZOBACTAM 4.5 GM/120 ML BAG IV ONE (20:11)
[2021-03-30] MEDS ORDERED: PIPERACILL/TAZOBAC CONSULT ACTIVE PRN ×2 (20:11→23:04)
[2021-03-30] MEDS ORDERED: RAPID SEQUENCE INDUCTION BAG ONE (21:05)
[2021-03-30 21:09] LABS: Appearance Urine Clear (Clear); Bilirubin Urine Negative (Negative); Blood Urine Negative (Negative); Color Urine Dark Yellow; Glucose Urine UA Negative (Negative); Ketones Urine 1+ (Negative); Leukocyte Esterase Urine Negative (Negative); Nitrite Urine Negative (Negative); Protein Urine Negative (Negative); Specific Gravity Urine 1.027 (1.000-1.030); Urobilinogen Urine Negative (Negative)
[2021-03-30] MEDS ORDERED: PROPOFOL IV EMULSION 10 MG/ML 100 ML VIAL IV ONE (21:18)
[2021-03-30] MEDS ORDERED: STAT IV Infusion **Titration per Protocol STA ×2 (21:21→23:14)
[2021-03-30] MEDS ORDERED: PROPOFOL BOLUS FROM BAG IV PRN (21:21)
[2021-03-30] MEDS ORDERED: POLYETHYLENE (MIRALAX) 17 GM PACK PO PRN (21:21)
[2021-03-30 21:45] LABS: Amphetamines+Metham, Urine Pos (Neg); Barbiturates, Urine Neg (Neg); Benzodiazepine, Urine Neg (Neg); Cocaine, Urine Neg (Neg); MDMA (Ecstacy), Urine Pos (Neg); Methadone, Urine Neg (Neg); Opiate, Urine Neg (Neg); Phencyclidine, Urine Neg (Neg)
--- NOTE | 2021-03-30 21:47 | History & Physical Report ---
Date of Service March 30, 2021 Assessment & Plan (1) Acute encephalopathy: Plan: Agitated anxiety/delirium resulting in encephalopathy from drug abuse - Following sedationo and 4 point restraints int he EMD patient required intubation for airway protection as well as self protection - Sedate with propofol- continued management of sedation to the ICU - Restraint weaning and conversion to ICU (2) Drug abuse: Plan: Drug abuse of multiple substances likely - Urine Toxicology screen + for MDMA and Methamphetamines - Likely to also have synthetic opiates on board as reported to "sniffing Darcy conway" last week - Seizure precautions for withdraw - Further sedation needs to ICU (3) Aspiration pneumonia: Plan: Bilateral opacities R>L - Elevated WBC 18 with elevated NLR - Continue Zosyn for now- defer further to ICU - WBC may also be elevated from his acute stress and combative state - follow as above - afebrile, no lobar collapse (4) Chronic reflux esophagitis: Plan: Diagnosed on EGD 02/26 - Will place on PPI IV 40mg BID while intubated and in the ICU - OGT to LIWS (5) Chronic pain: Plan: On gabapentin and Tramadol as outpatient - defer continuation to ICU - may benefit from giving down OGT to prevent any further withdraw as unsure if he is abusing this as well (6) On mechanically assisted ventilation: Plan: Intubated and mehcanically ventliated as per HPI - Wean per ICU protocol - Sedate with Propfol - further sedation needs/bolus dosing defer to ICU - ARDSnet ventilation strategy - to the ICU - Restraints to the ICU (7) Aspiration pneumonia: Plan: Continue Zosyn for now not hypoxic no lobar collapse no sputum production (8) Elevated CK: Plan: Follow- likely from his agitation and combativeness - Level not currently not in range for Rhabdo- 1204 - LR at 125ml/hr (9) Hypocalcemia: Plan: Replete with 1GM CA gluconate IV - LR as above History of Present Illness Primary Care Provider: Ted King MD 50 YOM with past medical history of: Right foot fracture (from fall off ladde r), Gastric ulcerations, GI Bleed, Chronic pain of legs. Patient was brought in today by his family for severe agitation and punching self and banging his head on car window. Patient reportedly went shopping with his father and went into the bathroom, his father says he was in there for quite a while. When he came out appeared fine, but upon driving he became agitated and combative and delirious. On Arrival to the [facility], it was noted he had drug paraphernalia in his pockets. Reportedly this consisted of white crystals, meth pipe, heroine. He required 4 point restraints along with Haldol 5mg and Ativan 5mg IM. A toxicology screen was obtained with placement of Santos catheter. He had a CT scan of his head performed, routine labs including CK. Hospitalist team was notified for admission. Upon evaluation the patient was on oxymask with sonorous respirations of 12. He was normo-cardic and normotensive. He would arouse with any tactile stimulation and continue to thrash in the bed and grunt. At this time as he is very likely to require more sedation to keep not only the patient safe but staff safe, the ability to protect his airway through another bout of sedation would be unlikley. Decision was made to Intubate the patient for airway protection and sedation until his likely toxic encephalopathy resolves. The ICU was notified as well prior to intubation and exam was perf ormed by ICU PA-C at that time. Case was discussed with his family who agreed and understood. Discussed with EMD Dr. Lobo and intubation was performed without any difficulties. He was sedated with Propofol and transfer to ICU after completion of CT scan of the abdomen and pelvis. TOX SCREEN on admission is POSITVE for: MDMA and Amphetamines Family reports patient is under high stress over the past 2 years and moved back in with them. Over the past 6 months they had suspicions that he may have been using drugs due to his quick agitation and periods of him rocking back and forth and pulling at his hair. He has not had an episode as severe as today. He was brought in to the [facility] on 03/12/21 for concerns for "witnessed seizure event" where he was found thrashing around in the grass. He had toxicology screen done at that admission that was negative for any of the drug metabolites that we measure for, not excluding synthetics or others, but reported sniffing Fentanyl to EMD provider at that time. He was noted to have likely aspiration pneumonia at that time. He does use Tramadol and gabapentin for home use of pain control. Patient COVID test on admission is: NEGATIVE Allergies Allergy/AdvReac Type Severity Reaction Status Date / Time No Known Allergies Allergy Verified 03/12/21 16:53 Home Medications Medication Instructions Recorded Confirmed Type gabapentin 600 mg tablet 600 mg PO DIRECTED 03/12/21 03/12/21 History pregabalin 75 mg capsule (Lyrica) 75 mg PO DIRECTED 03/12/21 03/12/21 History tramadol 50 mg tablet 50 mg PO DIRECTED PRN 03/12/21 03/12/21 History Past Med/Surg History Medical History Anemia Closed navicular fracture of right foot Closed right calcaneal fracture Duodenal ulcer Esophageal ulcer Fall GI bleed UPPER AND LOWER Hypokalemia Surgical History History of esophagogastroduodenoscopy (EGD) (02/2018) History of open reduction and internal fixation (ORIF) procedure R ANKLE History of tooth extraction WISDOM TEETH Family History Grandmother Family history of diabetes mellitus PATERNAL Father Family hx colonic polyps Myocardial infarction Social History Smoking Status: Unknown if ever smoked Tobacco Type: Cigarettes Second Hand Exposure: No; Hx Alcohol Use: No Hx Substance Use: No Preferred Language: Indonesian Communication Ability: Effective Technician Assistant Required: No Beliefs That Will Affect Care: None marital status: Single Current Living Situation: Family Current Living Situation Comment: unknown current occupational status: employed Feels Safe at Home: Yes Assistive Devices: Oxygen - Continuous Review of Systems Review of Systems: Unable to perform: Information obtained from mother and father at the bedside Physical Exam Physical Exam: PHYSICAL EXAM: General: sedated with sonorous respirations Head: bruising to forehead from banging his head ENT: PERRLA- sluggish, tracks persons in the room when he awakens Neuro:(prior to intubation) AAO x 0, speech none- GCS-8 strength intact bilaterally 5/5, localizes pain, Chest: equal rise and fall of the chest, no accessory muscle use, no heaves or thrills, scattered crackles Right base, now sedated and intubated on ventilator Cardiac: Regular rate and rhythm, telemetry reviewed, skin warm dry, cap refill <3 seconds, peripheral pulses +2 no JVD, no murmur, no JVD, no edema GI: NABS x 4 quadrants, soft, nontender to palpation, no rebound, guarding or tenderness : retention - santos catheter placed- light heriberto urine Extremities: multiple abrasions and bruising noted Psych: delirious with combative agitation Skin: abrasions and echymosis to hips and legs Results & Data Results & Data ([facility]) Vital Signs (Past 12 Hours) Vital Signs Temp Pulse Pulse Resp BP BP Pulse Ox 03/30/21 20:08 88 14 128/81 99 03/30/21 19:13 88 15 122/81 97 03/30/21 17:26 84 12 126/75 99 03/30/21 16:42 99 03/30/21 16:41 87 L 03/30/21 15:33 36.8 C 134 H 12 131/68 89 L Laboratory Results Abnormal lab results 03/30/21 03/30/21 03/30/21 Range/Units 15:49 15:49 15:49 WBC 18.24 H (4.8-10.8) K/uL RBC 4.23 L (4.7-6.1) M/uL Hgb 13.0 L (14.0-18.0) g/dL POC Hgb (14.0-18.0) g/dl Hct 38.1 L (42-52) % POC Hct (42-52) % Neut # (Auto) 13.10 H (1.4-6.5) K/uL [place] # (Auto) 2.44 H (0.11-0.59) K/uL Immature Gran # (Auto) 0.05 H (0.00-0.02) K/uL POC Total CO2 (24-31) mmol/L Calcium 8.4 L (8.5-10.1) mg/dl POC Ioniz Calcium Bk (1.12-1.32) mmol/l AST 42 H (15-37) U/L Total Creatine Kinase 1204 H (39-308) U/L Urine Ketones (Negative) Salicylates < 1.7 L (2.8-20) mg/dl Acetaminophen < 2 L (10-30) ug/ml U Amphetamin/Meth Scrn (Neg) MDMA (Ecstasy) Screen (Neg) 03/30/21 03/30/21 03/30/21 Range/Units 15:58 20:58 20:58 WBC (4.8-10.8) K/uL RBC (4.7-6.1) M/uL Hgb (14.0-18.0) g/dL POC Hgb 11.2 L (14.0-18.0) g/dl Hct (42-52) % POC Hct 33 L (42-52) % Neut # (Auto) (1.4-6.5) K/uL [place] # (Auto) (0.11-0.59) K/uL Immature Gran # (Auto) (0.00-0.02) K/uL POC Total CO2 20 L (24-31) mmol/L Calcium (8.5-10.1) mg/dl POC Ioniz Calcium Bk 1.02 L (1.12-1.32) mmol/l AST (15-37) U/L Total Creatine Kinase (39-308) U/L Urine Ketones 1+ H (Negative) Salicylates (2.8-20) mg/dl Acetaminophen (10-30) ug/ml U Amphetamin/Meth Scrn Pos H (Neg) MDMA (Ecstasy) Screen Pos H (Neg) Diagnostic Findings Chest X-Ray 03/30/21 15:35 XR chest 1V portable CLINICAL HISTORY: ams TECHNIQUE: Single frontal radiograph of the chest was obtained. Comparison: Comparison is made to chest one view 03/12/2021 FINDINGS: No lines and tubes are seen. The cardiomediastinal silhouette is normal. Scattered predominantly perihilar airspace opacities are seen. No evidence of pleural effusion or pneumothorax. IMPRESSION: Scattered predominantly perihilar airspace opacities are seen which may reflect atelectasis, pneumonia, and/or aspiration. Right lower lung airspace opacities have somewhat improved from the prior exam. ACT 112: Negative or not required by law. Electronically signed by: Yuriy Lutz M.D. 03/30/2021 4:[address] 03/30/21 15:36 CT SCAN OF THE BRAIN WITHOUT IV CONTRAST CLINICAL HISTORY: Change in mental status COMPARISON STUDY: CT of the brain dated 03/12/2021. TECHNIQUE: Unenhanced axial CT scan of the brain is performed from the vertex to the skull base. A dose lowering technique was utilized adhering to the principles of ALARA. The examination is modestly degraded by motion artifact. CT DOSE: 1228.53 mGy.cm FINDINGS: Brain parenchyma: The brain parenchyma is normal in appearance. There is no hemorrhage, mass effect, or evidence of acute territorial ischemia by CT criteria. Baptiste-white matter differentiation is preserved. No extra-axial fluid collection is seen. Ventricles, sulci, cisterns: Normal in configuration. Intracranial vasculature: The visualized intracranial vasculature at the skull base is normal in appearance. Calvarium: Unremarkable. Sinuses and mastoids: There is trace mucosal thickening within the left maxillary antrum. The remaining paranasal sinuses are clear. The mastoid air cells are well pneumatized. Orbits: The bony orbits are grossly intact. IMPRESSION: No acute intracranial abnormality. ACT 112: Negative or not required by law. Electronically signed by: Chapin Aguilar M.D. 03/30/2021 4:32 PM Medications Administered Sodium Chloride (Nss 1000ml) 1,000 mls @ 150 mls/hr IV .Q6H40M SANDOVAL Stop: 04/29/21 17:29 Last Admin: 03/30/21 18:01 Dose: 150 mls/hr Documented by: [id number] Discontinued Medications Dextrose (Dextrose 50% 50 Ml Syringe) Confirm Administered Dose 50 ml IV .STK- MED ONE Stop: 03/30/21 16:02 Last Admin: 03/30/21 16:04 Dose: 50 ml Documented by: [id number] Haloperidol Lactate (Haloperidol Lactate 5 Mg/Ml 1 Ml Vial) 5 mg IM NOW ONE Stop: 03/30/21 15:46 Last Admin: 03/30/21 15:35 Dose: 5 mg Documented by: [id number] Lorazepam (Ativan) 1 mls @ 0 mls/min IM NOW ONE Stop: 03/30/21 15:46 Last Admin: 03/30/21 15:35 Dose: 1 mls/min Documented by: [id number] Lorazepam (Ativan) 1 mg in 2 mls @ 2 mls/min IV NOW STA Stop: 03/30/21 18:11 Last Admin: 03/30/21 18:24 Dose: 2 mls/min Documented by: [id number] Piperacillin Sod/Tazobactam Sod (Zosyn) 4.5 gm in 120 mls @ 240 mls/hr IV NOW ONE Stop: 03/30/21 20:40 Last Admin: 03/30/21 20:56 Dose: 240 mls/hr Documented by: [id number] Lorazepam (Lorazepam 2 Mg/4 Ml Vial) Confirm Administered Dose 2 mg .ROUTE .STK- MED ONE Stop: 03/30/21 16:00 Last Increment: 03/30/21 19:11 Dose: 1 mg Documented by: [id number] Increment: 03/30/21 16:02 Dose: 1 mg Documented by: [id number] Lorazepam (Lorazepam 2 Mg/4 Ml Vial) Confirm Administered Dose 2 mg .ROUTE .STK- MED ONE Stop: 03/30/21 18:11 Last Admin: 03/30/21 18:26 Dose: Not Given Documented by: [id number] Miscellaneous (Rapid Sequence Induction Bag) Confirm Administered Dose 1 ea .ROUTE .STK-MED ONE Stop: 03/30/21 21:06 Last Admin: 03/30/21 21:22 Dose: 1 ea Documented by: [id number] Naloxone HCl (Naloxone Hcl 0.4 Mg/1 Ml Vial/Carp) Confirm Administered Dose 0.4 mg .ROUTE .STK-MED ONE Stop: 03/30/21 15:47 Last Admin: 03/30/21 17:32 Dose: Not Given Documented by: [id number] Propofol (Propofol Iv Emulsion 10 Mg/Ml 100 Ml Vial) Confirm Administered Dose 1,000 mg IV .STK-MED ONE Stop: 03/30/21 21:19 Last Admin: 03/30/21 21:47 Dose: 1,000 mg Documented by: [id number] Cosigned by: [id number] Home Medications gabapentin 600 mg tablet 600 mg PO DIRECTED 03/12/21 [History Confirmed 03/12/21] pregabalin 75 mg capsule (Lyrica) 75 mg PO DIRECTED 03/12/21 [History Confirmed 03/12/21] tramadol 50 mg tablet 50 mg PO DIRECTED PRN 03/12/21 [History Confirmed 03/12/21] Active Medications Acetaminophen (Acetaminophen 325 Mg Tab) 650 mg PO Q4H PRN PRN Reason: Pain or Fever Stop: 04/29/21 21:20 Enoxaparin Sodium (Enoxaparin Inj 40 Mg/0.4 Ml Syr) 40 mg SQ Q24H [facility] Stop: 04/29/21 21:29 Sodium Chloride (Nss 1000ml) 1,000 mls @ 150 mls/hr IV .Q6H40M [facility] Stop: 04/29/21 17:29 Last Admin: 03/30/21 18:01 Dose: 150 mls/hr Documented by: Propofol (Diprivan) 1,000 mg in 100 mls @ 9.84 mls/hr IV .[id number] [facility]; Protocol Stop: 04/02/21 21:29 Pantoprazole Sodium 40 mg/ (Syringe) 10 mls @ 5 mls/min IV BID SANDOVAL Stop: 04/29/21 21:29 Lactated Ringer's (Lr) 1,000 mls @ 125 mls/hr IV .Q8H [facility] Stop: 04/29/21 21:59 Miscellaneous Information (Piperacill/Tazobac Consult Active) 1 ea N/A UD PRN PRN Reason: Consult Stop: 04/29/21 20:10 Polyethylene Glycol (Polyethylene (Miralax) 17 Gm Pack) 17 gm PO DAILY PRN PRN Reason: Constipation Stop: 04/29/21 21:20 Propofol (Propofol Bolus From Bag) 20 mg IV Q5M PRN PRN Reason: Sedation Stop: 04/02/21 21:20 ECG Additional Comments: QT Int : 354 ms P-R-T Axes : 056 051 031 degrees QTc Int : 418 ms Normal sinus rhythm with sinus arrhythmia Normal ECG When compared with ECG of 26-DEC-2017 12:14, No significant change was found Confirmed by Andrea Kidd ([id number]) on 03/13/2021 7:45:11 PM Code Status & VTE Plan Code Status CODE: FULL VTE: SCDs, Lovenox 40 sub q daily VTE Prophylaxis Plan VTE Prophylaxis will be ordered: Yes Supervising Physician Co-Signing Physician Notes Patient seen and examined, chart reviewed, case discussed with JUAN Resendiz and I agree with his assessment and plan as above. Patient with acute agitation, encephalopathy after presumed drug ingesion. Intubated and sedated now with propofol Utox +Ectasy and Amphetamines Intubated, sedated NC/AT, Pupils small, round and equally reactive, ETT in place +S1/S2, regular, no m/r/g Lungs - CTA Abd - +BS, soft, ND, mild bruising on abdominal wall Ext - warm, no edema Labs and images reviewed Assessment/Plan -Admit to MICU -Maintain sedation, pain control -IVF and electrolye repletion -Remainder of plan as above PG Care Time/CCT Total # of Minutes Spent Total Time Spent with Patient: Total time spent is greater than 50% in coordination of care (as documented) at patient's floor/unit and/or counseling patient: 30 minutes of critical care time was dedicated to- coordination of services, reviewing records and imaging, sedation for ventilation and discussing with family. Coding Level of Care Code 47812 Initial Inpt Care Lvl 3 Diagnoses Aspiration pneumonia J69.0 Aspiration pneumonia type: unspecified Laterality: bilateral Lung location: unspecified part of lung Chronic pain G89.29 Drug abuse F19.10 Acute encephalopathy G93.40 On mechanically assisted ventilation Z99.11 Aspiration pneumonia J69.0 Elevated CK R74.8 Hypocalcemia E83.51 Chronic reflux esophagitis K21.0 (1) Aspiration pneumonia Aspiration pneumonia type: unspecified Laterality: bilateral Lung location: unspecified part of lung Qualified Code(s): J69.0 - Pneumonitis due to inhalation of food and vomit
[2021-03-30] MEDS ORDERED: ENOXAPARIN INJ 40 MG/0.4 ML SYR SQ STA (22:24)
[2021-03-30] MEDS ORDERED: PANTOprazole 40 MG in SYRINGE 0 ML IV STA (22:26)
[2021-03-30] MEDS: propofoL 1,000 MG/100 ML VIAL IV SCH (22:45)
[2021-03-30] MEDS ORDERED: CALCIUM GLUCONATE 10% 1,000 MG in SODIUM CHLORIDE 0.9% 50 ML IV ONE (23:04)
[2021-03-30] MEDS ORDERED: fentaNYL DRIP 1,250 MCG/250 ML BAG IV SCH (23:15)
--- NOTE | 2021-03-30 23:26 | Critical Care Consultation ---
Date of Consultation March 30, 2021 Assessment & Plan (1) Admitted to intensive care unit: Reason Critically Ill: 50-year-old male presenting with likely excited delirium requiring extensive sedation and eventually endotracheal intubation for airway management as well as increased sedation given the patient's level of agitation. NEURO - * Altered mental status: * Likely secondary to agitated delirium. * Patient with recent presentations similar with snorting fentanyl. * CT head without acute findings. * Patient does have elevated white blood cell count, but without fever and is noted to have chest x-ray findings of possible aspiration. * No meningeal findings on exam. * Requiring high doses of Ativan and Haldol in the emergency department to control agitation. Unfortunately, patient required 15 L nonrebreather after administration. * Tox screen positive for MDMA and amphetamines. * Patient requiring four-point restraints in the emergency department. * Given all of these, patient is best served for endotracheal intubation for airway protection and management as he is a risk to himself as well as others. CARDIAC/VASCULAR - * No h/o cardiac disease * EKG: NSR at 89 bpm w/o ST/T-wave changes. QTc 467 ms. * Monitor on telemetry. RESPIRATORY - * Hypoxia: * Patient hypoxic on presentation with agitation. * Requiring 15 L nonrebreather after sedation medications. * Patient requiring endotracheal intubation for airway protection in the setting of above. * Likely aspiration pneumonia contributing as well. * Please see ID GI/NUTRITION - * OG tube in place * Prophylaxis: Protonix RENAL/LYTES - * No significant electrolyte derangements * IVF: LR at 125 mL's per hour - * Chicas in place - Strict I&Os. ENDO - * No history of diabetes or thyroid disease. * BSGs per unit protocol. ISS --> gtt per unit policy. HEME - * Stable H&H ID - * Aspiration pneumonia: * As seen on previous chest x-ray as well. * Agree with Zosyn coverage currently. * Can likely transition to Augmentin when extubated. * Lactate negative. * Will check procalcitonin LINES/IV ACCESS - * PIVs x2 * Chicas catheter * Endotracheal tube * OG tube DVT PROPHYLAXIS - * Lovenox * SCDs I have personally spent 38 minutes of critical care time in the direct management of this patient. This is a life/limb threatening event. This includes time spent evaluating patient, direct bedside care, chart review, placing orders, interpretation of diagnostic studies, discussion with consultants, patient, and family members, as well as other required patient management activities. This time is exclusive of all separately billable procedures, and teaching time and separate from and in addition to any other critical care service time. Thank you for allowing us to participate in the care of this patient. Please refer to my attending physician's documentation for any further recommendations. (2) Delirium: (3) Agitation: (4) Elevated CK: (5) Aspiration pneumonia: (6) Drug abuse: History of Present Illness Attending Physician: Janet Quick DO History of Present Illness Patient is a 50-year-old male with minimal significant past medical history who presented to the emergency department agitated with concerns for intoxication of illicit substance. The patient was reportedly shopping with his father earlier in the afternoon, and to return from the bathroom where he then became agitated and reportedly combative. The patient's father drove him to the emergency department. Patient was noted to be combative and required sedation in the emergency department. On search of his belongings, the patient was noted to have packets of drug paraphernalia as well as a glass pipe. Patient required escalating doses of Ativan as well as Haldol for sedation for imaging studies, IVs, and Chicas catheter placement. Upon evaluation in the emergency department, the patient is sedated, however he becomes significantly agitated with any minimal stimulation. Patient is wearing a 15 L nonrebreather and is with snoring respirations when not agitated. Patient requires four-point restraints. Patient's parents are at bedside. Did have brief discussion with concerns for his ongoing agitation as well as his safety as well as the safety for staff as he was requiring high levels of sedation in addition to four-point restraints. Family is comfortable with proceeding with endotracheal intubation. I do feel that given the patient's sedation requirement, continued agitation, need for high levels of oxygen after sedatives, the patient would benefit from endotracheal tube intubation to create safer environment for patient and staff. Patient intubated by ED physician. Allergies Allergy/AdvReac Type Severity Reaction Status Date / Time No Known Allergies Allergy Verified 03/12/21 16:53 Home Medications Medication Instructions Recorded Confirmed Type gabapentin 600 mg tablet 600 mg PO DIRECTED 03/12/21 03/12/21 History pregabalin 75 mg capsule (Lyrica) 75 mg PO DIRECTED 03/12/21 03/12/21 History tramadol 50 mg tablet 50 mg PO DIRECTED PRN 03/12/21 03/12/21 History Patient History Medical History Anemia Closed navicular fracture of right foot Closed right calcaneal fracture Duodenal ulcer Esophageal ulcer Fall GI bleed UPPER AND LOWER Hypokalemia Surgical History History of esophagogastroduodenoscopy (EGD) (02/2018) History of open reduction and internal fixation (ORIF) procedure R ANKLE History of tooth extraction WISDOM TEETH Family History Grandmother Family history of diabetes mellitus PATERNAL Father Family hx colonic polyps Myocardial infarction Social History Smoking Status: Unknown if ever smoked Tobacco Type: Cigarettes Second Hand Exposure: No; Hx Alcohol Use: No Hx Substance Use: No Preferred Language: Syriac Communication Ability: Effective Water Meter Reader Required: No Beliefs That Will Affect Care: None marital status: Single Current Living Situation: Family Current Living Situation Comment: unknown current occupational status: employed Feels Safe at Home: Yes Assistive Devices: Oxygen - Continuous Review of Systems Review of Systems: Unobtainable due to reduced consciousness Physical Exam Physical Exam: VITAL SIGNS - Vital signs and nursing notes were reviewed. GENERAL - 50-year-old male appearing his stated age who is sedated and with snoring respirations but is easily agitated with stimuli. In four point restraints. Requiring 15L non-rebreather. SKIN - Without rashes. HEAD - NC/AT. EYES - Pupils small, but equal bilaterally. Sclera anicteric. Palpebral conjunctiva pink and moist with no injection noted. EARS - No deformities of external structures noted on gross examination bilaterally. NOSE - Midline and without cyanosis. No epistaxis or purulent drainage noted. MOUTH/OROPHARYNX - Without perioral cyanosis. NECK - Neck with FROM. No nuchal rigidity. LUNGS - Snoring respirations. Coarse breath sounds throughout. No wheezing or rales noted. CARDIAC - RRR with S1/S2. No murmur, rubs, or gallops appreciated. ABDOMEN - Abdominal contour flat without pulsations or visible masses. BS normoactive all four quadrants. No tenderness, palpable masses, hepatosplenomegaly, or ascites noted. EXTREMITIES - No clubbing or peripheral cyanosis. No pretibial edema present. +3/5 radial and dorsalis pedis pulses palpated throughout. +5/5 strength noted in UE/LE bilaterally. NEUROLOGIC - Unable to assess secondary to patients current level of sedation with intermittent agitation. No focal neurological deficits noted, however. Results & Data Results & Data ([facility]) Vital Signs (Past 12 Hours) Vital Signs Temp Pulse Pulse Resp BP BP Pulse Ox 03/30/21 21:50 88 16 142/80 H 100 03/30/21 20:08 88 14 128/81 99 03/30/21 19:13 88 15 122/81 97 03/30/21 17:26 84 12 126/75 99 03/30/21 16:42 99 03/30/21 16:41 87 L 03/30/21 15:33 36.8 C 134 H 12 131/68 89 L Coding Level of Care Code Critical Care 1st 30-74 mins Diagnoses Admitted to intensive care unit Z78.9 Delirium R41.0 Agitation R45.1 Elevated CK R74.8 Aspiration pneumonia J69.0 Drug abuse F19.10 Time Spent (min) 38
[2021-03-30] MEDS: LACTATED RINGER'S 1,000 ML IV SCH (23:30)
[2021-03-31] MEDS: propofoL 1,000 MG/100 ML VIAL IV SCH (01:20)
[2021-03-31] MEDS ORDERED: PIPERACILLIN/TAZOBACTAM 3.375 GM in DEXTROSE 5% 100 ML IV SCH (02:00)
[2021-03-31 04:41] LABS: iSTAT Allen Test Pass; iSTAT Arterial Blood Gas HCO3 23 meg/L (19-24); iSTAT Arterial Blood Gas pCO2 41 mmHg (35-46); iSTAT Arterial Blood Gas pH 7.37 (7.35-7.45); iSTAT Arterial Blood Gas pO2 75 mmHg (80-95); iSTAT Carbon Dioxide 25 mmol/L (24-31); iSTAT FiO2 28 %; iSTAT Site L Radial
[2021-03-31 04:55] LABS: Basophils # (auto) 0.02 K/uL (0-0.2); Basophils % (auto) 0.2 %; Eosinophils # (auto) 0.13 K/uL (0-0.5); Eosinophils % (auto) 1.4 %; Hematocrit (blood only) 35.4 % (42-52); Hemoglobin 11.7 g/dL (14.0-18.0); Immature Granulocytes # (auto) 0.01 K/uL (0.00-0.02); Immature Granulocytes % (auto) 0.1 %; Lymphocytes # (auto) 2.11 K/uL (1.2-3.4); Lymphocytes % (auto) 22.6 %; Mean Corpuscular Hemoglobin 30.2 pg (25-34); Mean Corpuscular Hgb Conc 33.1 g/dL (32-36); Mean Corpuscular Volume 91.5 fL (80-100); Mean Platelet Volume 10.1 fL (7.4-10.4); Monocytes # (auto) 1.18 K/uL (0.11-0.59); Monocytes % (auto) 12.7 %; Neutrophils # (auto) 5.87 K/uL (1.4-6.5); Platelet Count 200 K/uL (130-400); RDW Coefficient of Variation 13.5 % (11.5-14.5); RDW Standard Deviation 44.6 fL (36.4-46.3); Red Blood Count 3.87 M/uL (4.7-6.1); White Blood Count 9.32 K/uL (4.8-10.8)
[2021-03-31 05:41] LABS: Albumin Level 2.6 gm/dl (3.4-5.0); BUN Creatinine Ratio 11.6 (10-20); Bilirubin Direct 0.2 mg/dl (0-0.2); Calcium 7.5 mg/dl (8.5-10.1); Creatinine Clr Calc Pharmacy 118.9 ml/min; Est GFR (Non-African American) 107.9 ml/min; Magnesium 2.2 mg/dl (1.8-2.4); Phosphorus 2.7 mg/dl (2.5-4.9); Potassium 3.2 mmol/L (3.5-5.1); Total Protein 5.4 gm/dl (6.4-8.2)
--- NOTE | 2021-03-31 06:07 | Critical Care Progress Note ---
Date of Service March 31, 2021 Assessment & Plan (1) Agitation: (2) Delirium: (3) GERD (gastroesophageal reflux disease): (4) Elevated CK: (5) Aspiration pneumonia: (6) Acute encephalopathy: (7) Drug abuse: (8) Chronic reflux esophagitis: (9) Admitted to intensive care unit: Plan: Reason Critically Ill: 50-year-old male presenting with likely excited delirium requiring extensive sedation and eventually endotracheal intubation for airway management as well as increased sedation given the patient's level of agitation. NEURO - -- SEDATION: Propofol -- ANALGESIA: Fentanyl * Acute Encephalopathy with Agitated Delirium -- suspect secondary to polysubstance use * Patient with recent presentations similar with snorting fentanyl. * Required high doses of Ativan and Haldol in the emergency department to co ntrol agitation. Unfortunately, patient required 15 L nonrebreather after administration. * CT head without acute findings. * Presented with elevated white count without fever. Subsequently resolved this morning. Concern for aspiration pneumonitis noted. No meningeal signs on exam. Lower concern for infectious etiology at this time. * No prior history of neurologic disease; concern for previous seizure-like activity at beginning of month was in setting of fentanyl use * Tox screen positive for MDMA and amphetamines. * Initially requiring ETT w/ MV for airway protection. Ween settings and extubate. * Ween restraints as appropriate * If agitated delirium persists, can consider Zyprexa / Precedex * Substance Use Disorder / Polysubstance Abuse * Patient now with multiple presentations concerning for substance abuse * UDS positive for MDMA, amphetamines on this admission; patient also reported snorting fentanyl during ED visit earlier this month * No known history of EtOH abuse, levels have been negative here both visits * Will require further exploration of triggers, etc. and intervention once stabilized -- can also consider psychiatry consult * Appreciate assistance for access to resources in the community CARDIAC/VASCULAR - * No h/o cardiac disease * EKG: NSR at 89 bpm w/o ST/T-wave changes. QTc 467 ms. * Monitor on telemetry. RESPIRATORY - * Hypoxic Respiratory Insufficiency: * Patient hypoxic on presentation with agitation. Increased O2 requirement following sedatives. * Required ETT w/ MV for airway protection. Plan to ween settings and extubate this AM. * Aspiration pneumonitis > PNA + atelectasis contributing as well. * Please see ID GI/NUTRITION - OGT. Enteral prophylaxis with PPI. Appreciate nutrition jessica correa. RENAL/LYTES - No significant derangement. Monitor. Continue LR @ 125cc/hr - Chicas in place - Strict I&Os. ENDO - No history of diabetes or thyroid disease. ICU hyperglycemia protocol HEME - Stable H&H. Monitor. ID - * Aspiration pneumonitis vs. pneumonia: Appreciated on CXR, CT-A/P. Procal, lactate negative. Initially presented with elevated WBCs, now resolved. * Transition Zosyn --> Unasyn for now. Can consider Augmentin vs.discontinuation. * Sputum stain and culture ordered. * MRSA nares ordered. * Blood cultures pending LINES/IV ACCESS - PIV x 2, Chicas, ETT, OGT DVT PROPHYLAXIS - Lovenox, SCDs Thank you for allowing us to be part of this patient's care. Please refer to Dr. George's documentation for any further recommendations. Admission and Anticipated Discharge Date Admission Date: March 30, 2021 Supervising Physician Co-Signing Physician Notes Dr. Weiss was resident physician during care of patient. I separately evaluated patient for lozano portions of the history and the exam. I was present during the critical portion of medical decision making, and I discussed the case with the resident. I generally agree with the findings and plan. Patient was successfully liberated from the ventilator agitated delirium appears to have resolved this is most consistent with polysubstance abuse. Stable for downgrade or discharge today. Subjective No acute events overnight. Patient unable to provide meaningful history given sedation and intubation. Review of Systems Review of Systems: Unobtainable due to endotracheal tube and Unobtainable due to reduced consciousness Physical Exam Physical Exam: General: Sedated and mechanically ventilated 50-year-old male. HEENT: NCAT. Eyes - Sclera are white, anicteric, and without injection. No appreciable subcutaneous emphysema. Cardiac: Normal rate and regular rhythm; S1 and S2 present with no murmurs, rubs, or gallops. Pulmonary: Mechanical ventilation ongoing. Lung sounds are vesicular throughout. Abdominal: Abdomen was soft, nondistended. Extremities: Upper and lower extremities are warm and well perfused. Radial and dorsalis pedis pulses were 2+ b/l. Capillary refill assessed in UE was < 3 sec. Results & Data Results & Data ([facility]) Vital Signs (Past 12 Hours) Vital Signs Temp Pulse Pulse Resp BP BP Pulse Ox 03/31/21 05:30 79 18 119/76 98 03/31/21 05:00 81 18 124/77 98 03/31/21 04:30 81 18 117/65 97 03/31/21 04:00 37.2 C 81 18 108/69 97 03/31/21 03:30 80 18 109/66 97 03/31/21 03:07 79 26 H 99 03/31/21 03:00 79 18 105/64 98 03/31/21 02:30 80 18 105/67 98 03/31/21 02:00 78 18 110/69 99 03/31/21 01:30 77 18 111/68 99 03/31/21 01:00 76 18 111/63 99 03/31/21 00:30 74 18 102/62 99 03/31/21 00:00 72 18 95/56 L 99 03/30/21 23:51 03/30/21 23:30 76 18 94/56 L 98 03/30/21 23:00 84 18 98/57 L 97 03/30/21 22:45 36.6 C 81 18 118/69 99 03/30/21 22:25 77 20 98 03/30/21 21:50 88 16 142/80 H 100 03/30/21 21:15 96 H 20 98 03/30/21 20:08 88 14 128/81 99 03/30/21 19:13 88 15 122/81 97 Pulse Ox 03/31/21 05:30 03/31/21 05:00 03/31/21 04:30 03/31/21 04:00 03/31/21 03:30 03/31/21 03:07 03/31/21 03:00 03/31/21 02:30 03/31/21 02:00 03/31/21 01:30 03/31/21 01:00 03/31/21 00:30 03/31/21 00:00 03/30/21 23:51 99 03/30/21 23:30 03/30/21 23:00 03/30/21 22:45 03/30/21 22:25 03/30/21 21:50 03/30/21 21:15 03/30/21 20:08 03/30/21 19:13 Resident Activity Tracking Resident Involvement: Resident Care Provided Care Provided: Adult Hospital Medicine
[2021-03-31] MEDS ORDERED: POTASSIUM CHLORIDE 20 MEQ/15 ML UDC PO STA (06:23)
[2021-03-31] MEDS: POTASSIUM CHLORIDE / WTR 10 MEQ/100 ML PLCT IV SCH ×3 (07:02→08:48)
--- NOTE | 2021-03-31 07:17 | XRay Report ---
XR chest 1V portable CLINICAL HISTORY: post intubation TECHNIQUE: Single frontal radiograph of the chest was obtained. Comparison: Comparison is made to chest one view 03/30/2021 FINDINGS: Interval placement of endotracheal tube with the tip 4.5 cm from the loren. The cardiomediastinal si lhouette is normal. Prominence and indistinctness of the vasculature is seen. Stable perihilar airspa ce opacities. No evidence of pleural effusion or pneumothorax. IMPRESSION: 1. Satisfactory position of endotracheal tube. 2. Mild pulmonary edema. 3. Stable perihilar airspace opacities. ACT 112: Negative or not required by law. Electronically signed by: Yuriy Lutz M.D. 03/31/2021 7:15 AM
[2021-03-31] MEDS: LACTATED RINGER'S 1,000 ML IV SCH ×3 (07:49→23:00)
[2021-03-31] MEDS: PANTOprazole 40 MG in SYRINGE 0 ML IV SCH ×2 (07:56→19:49)
--- NOTE | 2021-03-31 07:59 | CT Scan Report ---
CT abd pelvis wo con CLINICAL HISTORY: rule out infectious process / trauma TECHNIQUE: Helical axial images of the abdomen and pelvis were obtained. Automated dose lowering tech niques and/or adjustment according to patient size were utilized for this exam. This exam was perfor med without intravenous contrast. COMPARISON: Comparison is made to CT abdomen and pelvis 12/30/2020 FINDINGS: Lower chest: Bibasilar atelectasis and consolidative changes are noted, new from prior exam. Liver: Unremarkable. No focal lesions are seen. Gallbladder and biliary tree: There is suggestion of layering sludge without evidence of acute cholec ystitis. No intra- or extrahepatic biliary ductal dilation. Pancreas: Unremarkable, no focal lesions. Spleen: Unremarkable. Adrenals: Unremarkable. Kidneys and ureters: Unremarkable. Bladder: Chicas catheter is seen. Reproductive organs: Unremarkable. Bowel: A hiatal hernia is seen. The appendix is normal. Lymph nodes Retroperitoneal: Unremarkable. Mesenteric: Unremarkable. Pelvic: Unremarkable. Peritoneum: Normal Vessels: Atherosclerotic calcifications are seen. Abdominal wall: Unremarkable. Bones: Unremarkable. IMPRESSION: Likely pneumonia and atelectasis in the visualized portion of the lungs. No intra-abdominal acute abn ormality is seen. ACT 112: Negative or not required by law. Electronically signed by: Yuriy Lutz M.D. 03/31/2021 7:58 AM
[2021-03-31] MEDS: AMPICILLIN/SULBACTAM SOD 3,000 MG in 0.9 % SODIUM CHLORIDE 100 ML IV SCH ×3 (08:47→19:48)
--- NOTE | 2021-03-31 08:53 | Billing Data ---
Date of Service March 31, 2021 Coding Level of Care Code 81845 Subseq Obs Care Lvl 1
--- NOTE | 2021-03-31 09:40 | XRay Report ---
XR chest 1V portable CLINICAL HISTORY: f/u TECHNIQUE: Single frontal radiograph of the chest was obtained. Comparison: Comparison is made to chest one view 03/30/2021 FINDINGS: Interval placement of enteric tube, the side-port is nonvisualized. Stable position of endotracheal t ube. The cardiomediastinal silhouette is normal. Scattered bilateral airspace opacities are unchanged from prior exam. No evidence of pleural effusion or pneumothorax. IMPRESSION: 1. Satisfactory position of enteric tube. Endotracheal tube is stable. 2. Mild pulmonary edema. Bilateral airspace opacities which may represent atelectasis, pneumonia, an d/or aspiration. ACT 112: Negative or not required by law. Electronically signed by: Yuriy Lutz M.D. 03/31/2021 9:39 AM
--- NOTE | 2021-03-31 09:59 | Hospitalist Progress Note ---
Date of Service March 31, 2021 Assessment & Plan (1) Agitation: (2) Delirium: (3) GERD (gastroesophageal reflux disease): (4) Elevated CK: (5) Aspiration pneumonia: (6) Acute encephalopathy: (7) Drug abuse: (8) Chronic reflux esophagitis: (9) Admitted to intensive care unit: Plan: Rex Hudson is a 50-year-old male presenting with likely excited delirium requiring extensive sedation and eventually endotracheal intubation for airway management as well as increased sedation given the patient's level of agitation. Subsequently extubated and sedation discontinued. Acute Encephalopathy with Agitated Delirium -- suspect secondary to polysubstance use -Patient with recent presentations similar with snorting fentanyl. -Required high doses of Ativan and Haldol in the emergency department to control agitation. Unfortunately, patient required 15 L nonrebreather after administration. -CT head without acute findings. -No prior history of neurologic disease; concern for previous seizure-like activity at beginning of month was in setting of fentanyl use -Tox screen positive for MDMA and amphetamines. -Initially requiring ETT w/ MV for airway protection -- extubated 03/31 AM -If agitated delirium persists, can consider Zyprexa Substance Use Disorder / Polysubstance Abuse - Patient now with multiple presentations concerning for substance abuse - UDS positive for MDMA, amphetamines on this admission; patient also reported snorting fentanyl during ED visit earlier this month - No known history of EtOH abuse, levels have been negative here both visits - Will require further exploration of triggers, etc. and intervention once stabilized -- can also consider psychiatry consult - Appreciate CM assistance for access to resources in the community Acute Hypoxic Respiratory Insufficiency: - Patient hypoxic on presentation with agitation. Increased O2 requirement following sedatives. - Required ETT w/ MV for airway protection -- as above extubated 03/31 - Aspiration pneumonitis > PNA + atelectasis contributing as well. - See below Aspiration pneumonitis vs. pneumonia: Appreciated on CXR, CT-A/P. Procal, lactate negative. Initially presented with elevated WBCs, now resolved. - Continue Unasyn for PNA coverage -- consider Augmentin when tolerating PO reliably - Sputum stain and culture pending - MRSA nares negative - Blood cultures pending Chronic pain - Resume home meds once alert. GERD - PPI Hypocalcemia/Hypokalemia - Replace DVT PROPHYLAXIS - Lovenox, SCDs Diet: Regular as tolerated, LR @ 125 cc/hr Dispo: PCU/Telemetry CODE: FULL Admission and Anticipated Discharge Date Admission Date: March 30, 2021 Supervising Physician Co-Signing Physician Notes Resident Physician Supervision Note: I independently interviewed and examined the patient and verified the lozano history and physical, reviewed labs and image studies and agree with resident Dr. Juarez findings and care plan. Subjective Patient seen at bedside this morning. He was just taken off ventilator and re leah quite sedated. He does react to me calling out his name. He has very limited communication. Is unable to state his name, date, location. When asked if he has any pain or symptoms mentions no but promptly falls back asleep. Review of Systems Review of Systems: per subjective Physical Exam Physical Exam: GENERAL: Sleepy/sedated. NAD. CHEST/LUNGS: CTAB A/P. No crackles, wheezes, rales, rhonchi. HEART: RRR. No m/g/r. No carotid bruits. ABDOMEN: NT/ND, soft. BS+ x4 EXTREMITIES: No cyanosis, no clubbing, no edema SKIN: Warm and dry. No rashes or lesions. NEUROLOGIC: Sedated Results & Data Results & Data ([facility]) Vital Signs (Past 12 Hours) Vital Signs Temp Pulse Resp BP Pulse Ox Pulse Ox 03/31/21 08:00 37.0 C 81 13 136/77 99 03/31/21 07:48 61 97 03/31/21 06:00 79 18 121/74 97 03/31/21 05:30 79 18 119/76 98 03/31/21 05:00 81 18 124/77 98 03/31/21 04:30 81 18 117/65 97 03/31/21 04:00 37.2 C 81 18 108/69 97 03/31/21 03:30 80 18 109/66 97 03/31/21 03:07 79 26 H 99 03/31/21 03:00 79 18 105/64 98 03/31/21 02:30 80 18 105/67 98 03/31/21 02:00 78 18 110/69 99 03/31/21 01:30 77 18 111/68 99 03/31/21 01:00 76 18 111/63 99 03/31/21 00:30 74 18 102/62 99 03/31/21 00:00 72 18 95/56 L 99 03/30/21 23:51 99 03/30/21 23:30 76 18 94/56 L 98 03/30/21 23:00 84 18 98/57 L 97 03/30/21 22:45 36.6 C 81 18 118/69 99 03/30/21 22:25 77 20 98 Resident Activity Tracking Resident Involvement: Resident Care Provided Care Provided: Adult [facility] Medicine
--- NOTE | 2021-03-31 13:24 | Electrocardiogram Report ---
Test Reason : Blood Pressure : / mmHG Vent. Rate : 093 BPM Atrial Rate : 093 BPM P-R Int : 152 ms QRS Dur : 098 ms QT Int : 376 ms P-R-T Axes : 060 054 036 degrees QTc Int : 467 ms Normal sinus rhythm Cannot rule out Anterior infarct , age undetermined Abnormal ECG When compared with ECG of 12-MAR-2021 16:29, No significant change was found Confirmed by Andrea Kidd ([id number]) on 03/31/2021 1:24:14 PM Referred By: REFERRED SELF Confirmed By:Andrea Kidd
--- NOTE | 2021-03-31 15:06 | Electrocardiogram Report ---
Test Reason : Blood Pressure : / mmHG Vent. Rate : 080 BPM Atrial Rate : 080 BPM P-R Int : 142 ms QRS Dur : 098 ms QT Int : 402 ms P-R-T Axes : 063 055 038 degrees QTc Int : 463 ms Normal sinus rhythm Normal ECG When compared with ECG of 30-MAR-2021 16:40, (unconfirmed) No significant change was found Confirmed by Andrea Kidd ([id number]) on 03/31/2021 3:06:47 PM Referred By: REFERRED SELF Confirmed By:Andrea Kidd
[2021-03-31] MEDS: ACETAMINOPHEN 325 MG TAB PO PRN (19:48)
[2021-03-31] MEDS ORDERED: ENOXAPARIN INJ 40 MG/0.4 ML SYR SQ SCH (21:00)
[2021-04-01] MEDS: AMPICILLIN/SULBACTAM SOD 3,000 MG in 0.9 % SODIUM CHLORIDE 100 ML IV SCH ×3 (00:41→13:38)
[2021-04-01] MEDS: LACTATED RINGER'S 1,000 ML IV SCH ×2 (06:11→16:58)
[2021-04-01 06:47] LABS: Basophils # (auto) 0.01 K/uL (0-0.2); Basophils % (auto) 0.1 %; Eosinophils # (auto) 0.08 K/uL (0-0.5); Eosinophils % (auto) 1.1 %; Hemoglobin 12.7 g/dL (14.0-18.0); Immature Granulocytes # (auto) 0.02 K/uL (0.00-0.02); Immature Granulocytes % (auto) 0.3 %; Lymphocytes # (auto) 1.47 K/uL (1.2-3.4); Lymphocytes % (auto) 20.7 %; Mean Corpuscular Hemoglobin 30.7 pg (25-34); Mean Corpuscular Hgb Conc 33.4 g/dL (32-36); Mean Corpuscular Volume 91.8 fL (80-100); Mean Platelet Volume 10.8 fL (7.4-10.4); Monocytes # (auto) 0.98 K/uL (0.11-0.59); Monocytes % (auto) 13.8 %; Neutrophils # (auto) 4.53 K/uL (1.4-6.5); Platelet Count 215 K/uL (130-400); RDW Coefficient of Variation 13.3 % (11.5-14.5); RDW Standard Deviation 44.6 fL (36.4-46.3); Red Blood Count 4.14 M/uL (4.7-6.1); White Blood Count 7.09 K/uL (4.8-10.8)
[2021-04-01 07:07] LABS: BUN Creatinine Ratio 8.5 (10-20); Calcium 8.2 mg/dl (8.5-10.1); Creatinine Clr Calc Pharmacy 150.6 ml/min; Est GFR (African American) 137.8 ml/min; Est GFR (Non-African American) 118.9 ml/min; Potassium 3.4 mmol/L (3.5-5.1)
[2021-04-01] MEDS: ACETAMINOPHEN 325 MG TAB PO PRN (09:00)
[2021-04-01] MEDS: PANTOprazole 40 MG in SYRINGE 0 ML IV SCH (09:00)
[2021-04-01] MEDS: POTASSIUM CHLORIDE / WTR 10 MEQ/100 ML PLCT IV SCH ×3 (09:00→11:56)
--- NOTE | 2021-04-01 11:02 | Electrocardiogram Report ---
Test Reason : Blood Pressure : / mmHG Vent. Rate : 070 BPM Atrial Rate : 070 BPM P-R Int : 144 ms QRS Dur : 096 ms QT Int : 414 ms P-R-T Axes : 080 101 053 degrees QTc Int : 447 ms Normal sinus rhythm Rightward axis Borderline ECG When compared with ECG of 31-MAR-2021 04:37, No significant change was found Confirmed by Pedro Chen ([id number]) on 04/01/2021 11:01:54 AM Referred By: REFERRED SELF Confirmed By:Pedro Chen
[2021-04-01] MEDS ORDERED: Influenza Vaccine (Fluarix) 0.5 ML SYR (Standard Dose) IM ONE (13:30)
--- NOTE | 2021-04-01 13:30 | Discharge Summary ---
Date of Service April 01, 2021 Admission HPI Per Admitting Provider 50 YOM with past medical history of: Right foot fracture (from fall off ladder), Gastric ulcerations, GI Bleed, Chronic pain of legs. Patient was brought in today by his family for severe agitation and punching self and banging his head on car window. Patient reportedly went shopping with his father and went into the bathroom, his father says he was in there for quite a while. When he came out appeared fine, but upon driving he became agitated and combative and delirious. On Arrival to the [facility], it was noted he had drug paraphernalia in his pockets. Reportedly this consisted of white crystals, meth pipe, heroine. He required 4 point restraints along with Haldol 5mg and Ativan 5mg IM. A toxicology screen was obtained with placement of Chicas catheter. He had a CT scan of his head performed, routine labs including CK. Hospitalist team was notified for admission. Upon evaluation the patient was on oxymask with sonorous respirations of 12. He was normo-cardic and normotensive. He would arouse with any tactile stimulation and continue to thrash in the bed and grunt. At this time as he is very likely to require more sedation to keep not only the patient safe but staff safe, the ability to protect his airway through another bout of sedation would be unlikley. Decision was made to Intubate the patient for airway protection and sedation until his likely toxic encephalopathy resolves. The ICU was notified as well prior to intubation and exam was performed by ICU PA-C at that time. Case was discussed with his family who agreed and understood. Discussed with EMD Dr. Lobo and intubation was performed without any difficulties. He was sedated with Propofol and transfer to ICU after completion of CT scan of the abdomen and pelvis. TOX SCREEN on admission is POSITVE for: MDMA and Amphetamines Family reports patient is under high stress over the past 2 years and moved back in with them. Over the past 6 months they had suspicions that he may have been using drugs due to his quick agitation and periods of him rocking back and forth and pulling at his hair. He has not had an episode as severe as today. He was brought in to the [facility] on 03/12/21 for concerns for "witnessed seizure event" where he was found thrashing around in the grass. He had toxicology screen done at that admission that was negative for any of the drug metabolites that we measure for, not excluding synthetics or others, but reported sniffing Fentanyl to EMD provider at that time. He was noted to have likely aspiration pneumonia at that time. He does use Tramadol and gabapentin for home use of pain control. Patient COVID test on admission is: NEGATIVE Principal Diagnosis Acute encephalopathy with agitated delirium Discharge Exam GENERAL: A&Ox3. NAD. HEENT: PERRL, EOMI. Moist mucous membranes. NECK: No JVD. No lymphadenopathy. CHEST/LUNGS: CTAB A/P. No crackles, wheezes, rales, rhonchi. HEART: RRR. No m/g/r. No carotid bruits. ABDOMEN: NT/ND, soft. BS+ x4 EXTREMITIES: No cyanosis, no clubbing, no edema SKIN: Warm and dry. No rashes or lesions. PSYCHIATRIC: Euthymic affect, no SI, no pressured speech, no hallucinations NEUROLOGIC: No FND. CN II-XII grossly intact. Discharge Data Allergies Allergy/AdvReac Type Severity Reaction Status Date / Time No Known Allergies Allergy Verified 03/12/21 16:53 Consultations 03/30/21 20:25 ED Decision to Admit Stat 03/30/21 21:22 Consult Supervisor Landscape Routine Ordered Studies 03/30/21 15:36 CT head/brain wo con Stat 03/30/21 21:26 CT abd pelvis wo con Urgent Hospital Course (1) Agitation: (2) Delirium: (3) GERD (gastroesophageal reflux disease): (4) Elevated CK: (5) Aspiration pneumonia: (6) Acute encephalopathy: (7) Drug abuse: (8) Chronic reflux esophagitis: (9) Admitted to intensive care unit: Rex Hudson is a 50-year-old male presenting with likely excited delirium requiring extensive sedation and eventually endotracheal intubation for airway management as well as increased sedation given the patient's level of agitation. Subsequently extubated and sedation discontinued. Acute Encephalopathy with Agitated Delirium -- suspect secondary to polysubstance use -Patient with recent presentations similar with snorting fentanyl. -Required high doses of Ativan and Haldol in the emergency department to control agitation. Unfortunately, patient required 15 L nonrebreather after administration. -CT head without acute findings. -No prior history of neurologic disease; concern for previous seizure-like activity at beginning of month was in setting of fentanyl use -Tox screen positive for MDMA and amphetamines. -Initially requiring ETT w/ MV for airway protection -- extubated 03/31 AM -No further agitation/confusion after extubation Substance Use Disorder / Polysubstance Abuse - Patient now with multiple presentations concerning for substance abuse - UDS positive for MDMA, amphetamines on this admission; patient also reported snorting fentanyl during ED visit earlier this month - No known history of EtOH abuse, levels have been negative here both visits - Patient reported that he has been trying to self-treat for chronic pain using fentanyl -- he had a fall in 2018 which left him in pain - Reports only using drugs in the past few weeks --as above reports attempting to use fentanyl, though his toxicology shows MDMA and amphetamines/me th - Of note, urine opiates screen negative - External prescription history and PDMP show no prescription of his listed home medications (gabapentin, Lyrica, tramadol) since 2018 - Most recently received short course of opiates after visit to the emergency room -Case management provided list of drug and alcohol resources in the area after discussion with patient -- he was agreeable to this Acute Hypoxic Respiratory Insufficiency: - Patient hypoxic on presentation with agitation. Increased O2 requirement following sedatives. - Required ETT w/ MV for airway protection -- as above extubated 03/31 - Aspiration pneumonitis > PNA + atelectasis contributing as well. - See below Aspiration Pneumonitis vs. Pneumonia: Appreciated on CXR, CT-A/P. Procal, lactate negative. Initially presented with elevated WBCs, now resolved. - Initially on Zosyn, later transitioned to Unasyn for PNA coverage - Discharged on Augmentin 875 p.o. twice daily x5 days to finish out 7-day treatment - Sputum stain and culture pending - MRSA nares negative - Blood cultures NGTD Chronic Pain -As above, previously treated with gabapentin, Lyrica for chronic pain -Per patient had previously seen a pain management clinic but reported it was too far away and difficult to get to his appointments--has not followed since 2018 -Inpatient nurse navigator assisted with referral to [facility] -Recommend f/u with PCP for further discussion -- appt scheduled with myself on 04/11/21 GERD - PPI Hypocalcemia/Hypokalemia - Replaced Dispo: Home - Self Care, lives with family CODE: FULL Total Time Total Time Spent Total Time Spent (In Minutes): see attending attestation Discharge Plan Discharge Items Patient Disposition: Home - Self-Care Reason For Visit: OVERDOSE- UNKNOWN Discharge Diagnosis: Acute encephalopathy with agitated delirium Activity: Per Instructions section Non-emergency contact: Primary Care Provider and Pain Management Call non-emergency contact if: you have any medication questions and your pain is not controlled Follow-up/Referrals: Ted King MD [Primary Care Provider] - (Please call your primary care office to make a hospital follow up appointment.) Diet: Regular Addtl Attending Provider Instructions: You were admitted to [facility] due to confusion and agitation. This was found to be secondary to substance use, as your drug testing was positive for MDMA and amphetamines/meth. As discussed, you had been attempting to self treat with fentanyl for chronic pain. As such, our team has sent a referral to the [facility] practice. You will be contacted by their office prior to further evaluation. Additionally, you have been provided with drug counseling resources in the area. We also recommend that you follow with your primary care provider--an appointment has been set up for you at the [facility] at [facility] on 04/11/2021 at 1:10PM. Your chest x-ray was concerning for possible aspiration pneumonia and you were started on antibiotics. You should continue to take Augmentin 875mg twice daily for the next 5 days to finish out your treatment course. Please keep all scheduled follow-ups and take your medications as prescribed. Pending Studies at Discharge: No Stand-Alone Forms: My [facility], Smoking Cessation Medications and DC Order Prescriptions: New amoxicillin-pot clavulanate [Augmentin] 875-125 mg tablet 1 tab PO Q12H 5 Days Qty: 10 RF: 0 gabapentin 300 mg capsule 300 mg PO DAILY 7 Days Qty: 7 RF: 0 Discontinued gabapentin 600 mg Tablet 600 mg PO DIRECTED RF: 0 tramadol 50 mg Tablet 50 mg PO DIRECTED PRN (Reason: Pain) RF: 0 pregabalin [Lyrica] 75 mg Capsule 75 mg PO DIRECTED RF: 0 Discharge Orders: Discharge Order (Routine); Ordered 04/01/21 Ordered By: Issac Nguyen Admission Data Admit Date/Time: 03/30/21 21:22 Attending Provider: Tata Gomez Admit Provider: Janet Quick Primary Care Provider: Ted King Other Providers: Janet Quick ; Marcial George Other Interventions: Discharge Summary Assessment (RN) Last Done: 04/01/21 17:39 Supervising Physician Co-Signing Physician Notes Resident Physician Supervision Note: I independently interviewed and examined the patient and verified the lozano history and physical, reviewed labs and image studies and agree with resident Dr. Juarez findings and care plan. Resident Activity Tracking Resident Involvement: Resident Care Provided Care Provided: Adult Hospital Medicine
[2021-04-01] MEDS ORDERED: PREGABALIN 75 MG CAP PO SCH (14:00)
[2021-04-01] MEDS ORDERED: SUCCINYLCHOLINE CHLORIDE 20 MG/ML 10 ML VIAL IV ONE (18:05)
[2021-04-01] MEDS ORDERED: ETOMIDATE 2 MG/ML 20 ML VIAL IV ONE (18:05)
[2021-04-03 13:41] LABS: Amphetamine Urine, Confirm 2220 ng/mL (<250); MDA negative; MDEA negative; MDMA (Ecstasy) Urine, Confirm negative; Methamphetamine, Ur Confirm 14300 ng/mL (<250)
== END 2021-04-01 18:06 | disposition home or self-care (01) | DRG 208 ==
LOC: ED 15:25 → SUATTDRO 21:22 → 1E 21:22 → 2W 04-01 03:29